=== PATIENT | female | born 1980 | race African-American/Black ===

== ENCOUNTER 2017-05-18 19:09 | Emergency (ER) | payer SELFPAY ==
--- NOTE | 2017-05-18 19:15 | PDOC ---
Rapid Medical Evaluation Time Seen by Provider: 05/18/17 19:12 Medical Evaluation: Allergies Allergy/AdvReac Type Severity Reaction Status Date / Time morphine Allergy Verified 06/30/16 16:10 05/18/17 19:12 I have performed a brief-in person evaluation of this patient. The patient presents with a chief complaint of:hyperventilating/coughing Pt states shes been coughing x3d without fever/chills, runny nose, nasal congestion/sore throat Was seen at [facility] last Sunday05/09/2017 Never intubated for asthma last admission for asthma was July 2016 Pertinent physical exam findings:Pulse ox: 98 in triage L/S ctab I have ordered the following: CXR U preg The patient will proceed to the ED for a further evaluation.
[2017-05-18 19:16] VITALS: BP 158/68; TEMP 99.4; BMI 37.6
[2017-05-18] MEDS ORDERED: ALBUTEROL SO4 2.5/IPRATROPIUM 0.5 INH SOL 3 ML VIAL.NEB. NEB ONE ×3 (19:23→19:26)
[2017-05-18] MEDS ORDERED: predniSONE 20 MG TABLET (UD) PO ONE (19:27)
[2017-05-18] MEDS ORDERED: methylPREDNISolone NA SUCC 125 MG/2 ML VIAL ONE (19:33)
[2017-05-18] MEDS ORDERED: methylPREDNISolone NA SUCC 125 MG/2 ML VIAL IVPB ONE (19:33)
--- NOTE | 2017-05-18 19:41 | PDOC ---
History of Present Illness - General History Source: Patient Exam Limitations: No Limitations - History of Present Illness Initial Comments: 05/18/17 20:16 The patient is a 34 year old female, with a significant past medical history of asthma exacerbation (hospitalized in the past), who presents to the emergency department with, shortness of breath and cough. As per patient, she has been sick for multiple days worsening today. She reports significant shortness of breath when walking short distances. She describes her cough as productive with dark colored mucus. She denies taking steroids for her asthma today. She denies recent fevers, chills, headache or dizziness. She denies recent nausea, vomit, diarrhea or constipation. She denies recent dysuria, frequency, urgency or hematuria. She denies recent chest pain. Allergies: Morphine Past surgical history: None reported. Social history: Nonsmoker. Denies EtOH use and recreational drug use. <Richardson Lopez - Last Filed: 05/18/17 21:30> - General History Source: Patient Exam Limitations: No Limitations <Ric Colbert - Last Filed: 05/18/17 22:20> - General Chief Complaint: Asthma Stated Complaint: ASTHMA Time Seen by Provider: 05/18/17 19:12 Past History <Richardson Lopez - Last Filed: 05/18/17 21:30> - Past Medical History Asthma: Yes COPD: No GI Disorders: Yes - Surgical History Cholecystectomy: Yes GI Surgery: Yes (HIATAL HERNIA REPAIR, ERCP) - Reproductive History (#): 3 Para: 1 Therapeutic (s) & number: Yes (X1) Spontaneous : 0 - Immunization History Td Vaccination: No - Suicide/Smoking/Psychosocial Hx Smoking Status: No Smoking History: Never smoked Have you smoked in the past 12 months: No Number of Cigarettes Smoked Daily: 0 Information on smoking cessation initiated: No Hx Alcohol Use: No Drug/Substance Use Hx: No Substance Use Type: None <Ric Colbert - Last Filed: 05/18/17 22:20> - Past Medical History Allergies/Adverse Reactions: Allergies Allergy/AdvReac Type Severity Reaction Status Date / Time morphine Allergy Verified 06/30/16 16:10 Home Medications: Ambulatory Orders Erythromycin 0.5% Eye Ointment [Erythromycin 0.5% Eye Ointment -] 1 applic OD QID #1 tube 06/30/16 Albuterol Sulfate Inhaler - [Ventolin HFA Inhaler -] 1 - 2 inh PO Q4H PRN #1 inhaler 05/18/17 Azithromycin 250 mg PO DAILY #4 tablet 05/18/17 Prednisone [Deltasone] 60 mg PO DAILY #12 tablet 05/18/17 Review of Systems - Review of Systems Able to Perform ROS?: Yes Comments:: 05/18/17 20:17 GENERAL/CONSTITUTIONAL: No fever or chills. No weakness. HEAD, EYES, EARS, NOSE AND THROAT: No change in vision. No ear pain or discharge. No sore throat. CARDIOVASCULAR: No chest pain. RESPIRATORY: +Shortness of breath. +Cough. No hemoptysis. GASTROINTESTINAL: No nausea, vomiting, diarrhea or constipation. GENITOURINARY: No dysuria, frequency, or change in urination. MUSCULOSKELETAL: No joint or muscle swelling or pain. No neck or back pain. SKIN: No rash NEUROLOGIC: No headache, vertigo, loss of consciousness, or change in strength/ sensation. ENDOCRINE: No increased thirst. No abnormal weight change. HEMATOLOGIC/LYMPHATIC: No anemia, easy bleeding, or history of blood clots. ALLERGIC/IMMUNOLOGIC: No hives or skin allergy. All Other Systems: Reviewed and Negative <Richardson Lopez - Last Filed: 05/18/17 21:30> *Physical Exam - Vital Signs Last Vital Signs Temp Pulse Resp BP Pulse Ox 99.4 F 100 H 32 H 158/68 98 05/18/17 19:13 05/18/17 19:34 05/18/17 19:13 05/18/17 19:13 05/18/17 19:34 - Physical Exam Comments: 05/18/17 20:17 GENERAL: +Speaking a few words. Awake, alert, and fully oriented, in no acute distress HEAD: No signs of trauma EYES: PERRLA, EOMI, sclera anicteric, conjunctiva clear ENT: Auricles normal inspection, hearing grossly normal, nares patent, oropharynx clear without exudates. Moist mucosa NECK: Normal ROM, supple, no lymphadenopathy, JVD, or masses LUNGS: +Diffuse wheezing. No crackles HEART: +Tachycardic. Regular rate and rhythm, normal S1 and S2, no murmurs, rubs or gallops ABDOMEN: Soft, nontender, normoactive bowel sounds. No guarding, no rebound. No masses EXTREMITIES: Normal range of motion, no edema. No clubbing or cyanosis. No cords, erythema, or tenderness NEUROLOGICAL: Cranial nerves II through XII grossly intact. Normal speech, normal gait SKIN: Warm, Dry, normal turgor, no rashes or lesions noted. <Richardson Lopez - Last Filed: 05/18/17 21:30> - Vital Signs Last Vital Signs Temp Pulse Resp BP Pulse Ox 99.4 F 125 H 32 H 158/68 96 05/18/17 19:13 05/18/17 19:13 05/18/17 19:13 05/18/17 19:13 05/18/17 19:13 <Ric Colbert - Last Filed: 05/18/17 22:20> ED Treatment Course - LABORATORY CBC & Chemistry Diagram: 05/18/17 19:34 05/18/17 19:34 - ADDITIONAL ORDERS Additional order review: 05/18/17 19:22 Influenza Types A,B Antigen (ANDRA) - Final Nasopharyngeal Swab - Final 05/18/17 19:34 RBC 5.31 H MCV 63.8 L MCHC 30.5 L RDW 19.2 H MPV 9.0 Neutrophils % 43.9 Lymphocytes % 32.0 Monocytes % 10.9 H Eosinophils % 12.8 H Basophils % 0.4 - Medications Given in the ED: ED Medications Discontinued Medications Generic Name Dose Route Start Last Admin Trade Name Freq PRN Reason Stop Dose Admin Albuterol/Ipratropium 1 amp 05/18/17 19:23 05/18/17 19:48 Duoneb - NEB 05/18/17 19:24 1 amp ONCE ONE Administration Albuterol/Ipratropium 2 amp 05/18/17 19:26 05/18/17 19:48 Duoneb - NEB 05/18/17 19:27 2 amp ONCE ONE Administration Methylprednisolone Sodium Succinate 125 mg 05/18/17 19:33 05/18/17 19:48 Solu-Medrol - IVPB 05/18/17 19:34 125 mg ONCE ONE Administration Prednisone 60 mg 05/18/17 19:27 05/18/17 19:48 Deltasone - PO 05/18/17 19:28 Not Given ONCE ONE <Richardson Lopez - Last Filed: 05/18/17 21:30> - LABORATORY CBC & Chemistry Diagram: 05/18/17 19:34 05/18/17 19:34 - RADIOLOGY Radiology Studies Ordered: Category Date Time Status CHEST X-RAY PORTABLE* [RAD] Urgent Radiology 05/18/17 19:34 Ordered <Ric Colbert - Last Filed: 05/18/17 22:20> Medical Decision Making - Medical Decision Making 05/18/17 19:36 A portion of this note was written by my scribe, under my supervision. Vital Signs Temp Pulse Resp BP Pulse Ox 99.4 F 125 H 32 H 158/68 96 05/18/17 19:13 05/18/17 19:13 05/18/17 19:13 05/18/17 19:13 05/18/17 19:13 37 year old female c/ pmh obesity, asthma (never intubated) p/w asthma exacerbation. The patient reports several days of difficulty breathing, wheezing , productive cough, but no fevers, chills. States has had difficulty speaking and ambulating. Pt noted to be quite tachypneic and SOB. Pt with tight breath sounds and expiratory wheezing bilaterally. Pt was seen immediately by the PA and me. Pt was started on duonebs and started on solu-medrol. Chest xray and reassess. 05/18/17 22:13 CBC, BMP 05/18/17 19:34 05/18/17 19:34 CMP Sodium 139 mmol/L (136-145) 05/18/17 19:34 Potassium 4.4 mmol/L (3.5-5.1) 05/18/17 19:34 Chloride 108 mmol/L (98-107) H 05/18/17 19:34 Carbon Dioxide 26 mmol/L (21-32) 05/18/17 19:34 Anion Gap 5 (8-16) L 05/18/17 19:34 BUN 7 mg/dL (7-18) 05/18/17 19:34 Creatinine 0.7 mg/dL (0.55-1.02) 05/18/17 19:34 Creat Clearance w eGFR > 60 (>60) 05/18/17 19:34 Random Glucose 94 mg/dL (74-106) 05/18/17 19:34 Calcium 8.4 mg/dL (8.5-10.1) L 05/18/17 19:34 Magnesium 2.0 mg/dL (1.8-2.4) 05/18/17 19:34 Total Bilirubin 0.3 mg/dL (0.2-1.0) 05/18/17 19:34 AST 26 U/L (15-37) 05/18/17 19:34 ALT 34 U/L (12-78) 05/18/17 19:34 Alkaline Phosphatase 92 U/L (45-117) 05/18/17 19:34 Total Protein 7.3 g/dl (6.4-8.2) 05/18/17 19:34 Albumin 3.6 g/dl (3.4-5.0) 05/18/17 19:34 Serum , Qual Negative 05/18/17 19:34 Chest xray reviewed, pending official radiology read. No acute findings. Pt was reassessed and she feels significantly better. Will treat as asthma, bronchitis. Will discharge with albuterol, prednisone, and azithromycin. I discussed the physical exam findings, ancillary test results and final diagnoses with the patient. I answered all of the patient's questions. The patient was satisfied with the care received and felt comfortable with the discharge plan and treatment plan. The patient will call their primary care physician within 24 hours to arrange follow-up and will return to the Emergency Department with any new, persistant or worsening symptoms. <Ric Colbert - Last Filed: 05/18/17 22:20> *DC/Admit/Observation/Transfer - Attestations Scribe Attestion: 05/18/17 20:17 Documentation prepared by Richardson Lopez, acting as medical records technician for Ric Colbert MD. <Richardson Lopez - Last Filed: 05/18/17 21:30> - Discharge Dispostion Admit: No <Ric Colbert - Last Filed: 05/18/17 22:20> Diagnosis at time of Disposition: Bronchitis Asthma Qualifiers: Asthma severity: unspecified severity Asthma persistence: unspecified Asthma complication type: unspecified Qualified Code(s): J45.909 - Unspecified asthma, uncomplicated - Discharge Dispostion Disposition: HOME Condition at time of disposition: Improved - Prescriptions Prescriptions: Albuterol Sulfate Inhaler - [Ventolin HFA Inhaler -] 1 - 2 inh PO Q4H PRN #1 inhaler PRN Reason: Asthma Azithromycin 250 mg PO DAILY #4 tablet Prednisone [Deltasone] 60 mg PO DAILY #12 tablet - Patient Instructions Printed Discharge Instructions: Asthma -- Adult, DI for Acute Bronchitis Additional Instructions: Please take the medications as prescribed. Drink plenty of fluids and rest. Follow up with your doctor.
[2017-05-18 19:52] LABS: ADD RBC MORPHOLOGY YES; BASO % 0.4 % (0-2.0); EOS % 12.8 % (0-4.5); HEMATOCRIT 33.9 % (32.4-45.2); HEMOGLOBIN 10.3 GM/dL (10.7-15.3); MCH 19.4 pg (25.7-33.7); MCHC 30.5 g/dl (32.0-36.0); MEAN CELL VOLUME 63.8 fl (80-96); MONO % 10.9 % (3.8-10.2); NEUT % 43.9 % (42.8-82.8); PLATELET COUNT 306 K/MM3 (134-434); RBC 5.31 M/mm3 (3.60-5.2); RDW 19.2 % (11.6-15.6); WHITE BLOOD COUNT 12.5 K/mm3 (4.0-10.0)
[2017-05-18 19:55] VITALS: PULSE 100
[2017-05-18 20:26] LABS: ALBUMIN 3.6 g/dl (3.4-5.0); ALK PHOS 92 U/L (45-117); ANION GAP 5 (8-16); BILIRUBIN,TOTAL 0.3 mg/dL (0.2-1.0); BLOOD UREA NITROGEN 7 mg/dL (7-18); CALCIUM 8.4 mg/dL (8.5-10.1); CHLORIDE 108 mmol/L (98-107); CO2 26 mmol/L (21-32); CREATININE 0.7 mg/dL (0.55-1.02); GLUCOSE,RANDOM 94 mg/dL (74-106); POTASSIUM 4.4 mmol/L (3.5-5.1); SGOT/AST 26 U/L (15-37); SGPT/ALT 34 U/L (12-78); SODIUM 139 mmol/L (136-145); TOT PROT 7.3 g/dl (6.4-8.2)
[2017-05-18 20:47] LABS: ANISOCYTOSIS 2+
[2017-05-18 20:48] LABS: PLATELET ESTIMATE ADEQUATE; TARGET CELLS 1+
[2017-05-18] MEDS ORDERED: AZITHROMYCIN 500 MG TABLET PO ONE (21:58)
[2017-05-18] MEDS ORDERED: ALBUTEROL SO4 0.083% IH SOL 2.5 MG/3 ML VIAL.NEB. NEB ONE ×2 (21:59→22:03)
[2017-05-18] MEDS ORDERED: AZITHROMYCIN 500 MG TABLET ONE (22:03)
== END 2017-05-18 22:52 | disposition home or self-care (01) ==
LOC: JER 19:09
PROC: 3E0F7GC Introduction of Other Therapeutic Substance into Respiratory Tract, Via Natural or Artificial Opening (ICD-10-PCS; principal; 2017-05-18)
PROC: 3E0F7GC Introduction of Other Therapeutic Substance into Respiratory Tract, Via Natural or Artificial Opening (ICD-10-PCS; 2017-05-18)
PROC: 3E0F7GC Introduction of Other Therapeutic Substance into Respiratory Tract, Via Natural or Artificial Opening (ICD-10-PCS; 2017-05-18)
PROC: 3E0333Z Introduction of Anti-inflammatory into Peripheral Vein, Percutaneous Approach (ICD-10-PCS; 2017-05-18)
DX: J45.901 Unspecified asthma with (acute) exacerbation (principal)
CPT/HCPCS: 36415; 71045-TC; 80053; 83735; 84703; 85025; 87804; 99283-25

== ENCOUNTER 2017-09-21 16:17 | Emergency (ER) | payer SELFPAY ==
--- NOTE | 2017-09-21 16:21 | PDOC ---
Rapid Medical Evaluation Chief Complaint: Pain, Acute Time Seen by Provider: 09/21/17 16:18 Medical Evaluation: Allergies Allergy/AdvReac Type Severity Reaction Status Date / Time morphine Allergy Verified 09/21/17 16:19 09/21/17 16:19 I have performed a brief in-person evaluation of this patient. The patient presents with a chief complaint of: Upper abd pain w/ n/v x 1 week, similar yo when she was dx w/ gastric ulcer in 2013, not on meds. H/o surgery for hiatal hernia, s/p kevin, asthma Pertinent physical exam findings:appears uncomfortable, sig ttp to epigastrium I have ordered the following:labs The patient will proceed to the ED for further evaluation. 09/21/17 16:22 Discharge Disposition - Diagnosis Abdominal pain Qualifiers: Abdominal location: upper abdomen, unspecified Qualified Code(s): R10.10 - Upper abdominal pain, unspecified - Referrals - Patient Instructions - Post Discharge Activity
[2017-09-21 16:22] VITALS: TEMP 98.1; BMI 34.2
--- NOTE | 2017-09-21 16:43 | PDOC ---
History of Present Illness - General Chief Complaint: Pain, Acute Stated Complaint: ABD PAIN Time Seen by Provider: 09/21/17 16:18 - History of Present Illness Initial Comments: 09/21/17 16:41 Ms. Laura is a 37 yo female w/ pmh of asthma, gastric ulcer, hiatal hernia (s/ p repair '06), and cholecystecomy who presents for evaluation of 9 day history of nausea and vomiting with epigastric pain. She reports the vomiting has consisted of whatever she's eaten over this time period. Denies any blood or bile. Patient reports she was told 5 years ago about the gastric ulcer but that she has never followed up regarding this for further treatment. Ms. Laura also reports she sometimes wears a corset and has some bruising from this in the same area. The patient denies chest pain, shortness of breath, headache and dizziness. Denies fever, chills, diarrhea and constipation. Denies dysuria, frequency, urgency and hematuria. Allergies: Morphine Past History - Past Medical History Allergies/Adverse Reactions: Allergies Allergy/AdvReac Type Severity Reaction Status Date / Time morphine Allergy Verified 09/21/17 16:19 Home Medications: Ambulatory Orders Esomeprazole Magnesium [Nexium 24Hr] 20 mg PO DAILY #14 tablet. 09/21/17 Asthma: Yes COPD: No GI Disorders: Yes - Surgical History Cholecystectomy: Yes GI Surgery: Yes (HIATAL HERNIA REPAIR, ERCP) - Reproductive History (#): 3 Para: 1 Therapeutic (s) & number: Yes (X1) Spontaneous : 0 - Immunization History Td Vaccination: No - Suicide/Smoking/Psychosocial Hx Smoking Status: No Smoking History: Never smoked Have you smoked in the past 12 months: No Number of Cigarettes Smoked Daily: 0 Hx Alcohol Use: No Drug/Substance Use Hx: No Substance Use Type: None Review of Systems - Review of Systems Comments:: 09/21/17 16:42 GENERAL/CONSTITUTIONAL: No fever or chills. No weakness. HEAD, EYES, EARS, NOSE AND THROAT: No change in vision. No ear pain or discharge. No sore throat. CARDIOVASCULAR: No chest pain or shortness of breath RESPIRATORY: No cough, wheezing, or hemoptysis. GASTROINTESTINAL: +Epigastric pain w/ N/V as described, no diarrhea or constipation. GENITOURINARY: No dysuria, frequency, or change in urination. MUSCULOSKELETAL: No joint or muscle swelling or pain. No neck or back pain. SKIN: No rash NEUROLOGIC: No headache, vertigo, loss of consciousness, or change in strength/ sensation. ENDOCRINE: No increased thirst. No abnormal weight change HEMATOLOGIC/LYMPHATIC: No anemia, easy bleeding, or history of blood clots. ALLERGIC/IMMUNOLOGIC: No hives or skin allergy. *Physical Exam - Vital Signs Last Vital Signs Temp Pulse Resp BP Pulse Ox 98.1 F 88 18 143/85 100 09/21/17 16:19 09/21/17 16:19 09/21/17 16:19 09/21/17 16:19 09/21/17 16:19 - Physical Exam Comments: 09/21/17 16:43 GENERAL: Awake, alert, and fully oriented, in no acute distress HEAD: No signs of trauma, normocephalic, atraumatic EYES: PERRLA, EOMI, sclera anicteric, conjunctiva clear ENT: Auricles normal inspection, hearing grossly normal, nares patent, oropharynx clear without exudates. Moist mucosa NECK: Normal ROM, supple, no lymphadenopathy, JVD, or masses LUNGS: No distress, speaks full sentences, clear to auscultation bilaterally HEART: Regular rate and rhythm, normal S1 and S2, no murmurs, rubs or gallops, peripheral pulses normal and equal bilaterally. ABDOMEN: +Linear bruise along upper abdomen patient reports is from her corset. Patient significantly TTP in epigastric region. Otherwise soft, nontender, normoactive bowel sounds. No guarding, no rebound. No masses EXTREMITIES: Normal inspection, Normal range of motion, no edema. No clubbing or cyanosis. NEUROLOGICAL: Cranial nerves II through XII grossly intact. Normal speech, normal gait, no focal sensorimotor deficits SKIN: Warm, Dry, normal turgor, no rashes or lesions noted. ED Treatment Course - LABORATORY CBC & Chemistry Diagram: 09/21/17 16:35 09/21/17 16:35 Medical Decision Making - Medical Decision Making 09/21/17 19:15 Ms. Laura is a 37 yo female w/ pmh as described who presents for evaluation of epigastric pain as described. Labs grossly unconcerning as below. CT abdomen/ pelvis negative for acute process. Patient advised to follow-up with GI for further evaluation and will trial nexium for symptomatic relief. Providing GI referral and trial Rx. Discharging to home. Laboratory Results - last 24 hr 09/21/17 09/21/17 09/21/17 16:35 16:35 16:35 WBC 7.5 D RBC 4.90 Hgb 9.9 L Hct 32.4 MCV 66.1 L MCH 20.2 L MCHC 30.5 L RDW 17.5 H Plt Count 331 MPV 8.9 Absolute Neuts (auto) 4.1 Neutrophils % 54.8 D Lymphocytes % 27.2 Monocytes % 12.3 H Eosinophils % 5.4 H Basophils % 0.3 Nucleated RBC % 0 Hypochromia 2+ Anisocytosis 1+ Microcytosis 1+ Sodium 140 Potassium 4.1 Chloride 107 Carbon Dioxide 26 Anion Gap 7 L BUN 6 L Creatinine 0.8 Creat Clearance w eGFR > 60 Random Glucose 93 Calcium 9.1 Total Bilirubin 0.3 AST 22 ALT 34 Alkaline Phosphatase 77 Creatine Kinase Troponin I Total Protein 7.3 Albumin 3.8 Lipase 107 111 Serum , Qual Urine Color Urine Appearance Urine pH Ur Specific [place] Urine Protein Urine Glucose (UA) Urine Ketones Urine Blood Urine Nitrite Urine Bilirubin Urine Urobilinogen Ur Leukocyte Esterase Urine WBC (Auto) Urine RBC (Auto) Ur Epithelial Cells Urine Bacteria Urine Mucus 09/21/17 09/21/17 09/21/17 16:56 17:47 18:50 WBC RBC Hgb Hct MCV MCH MCHC RDW Plt Count MPV Absolute Neuts (auto) Neutrophils % Lymphocytes % Monocytes % Eosinophils % Basophils % Nucleated RBC % Hypochromia Anisocytosis Microcytosis Sodium Potassium Chloride Carbon Dioxide Anion Gap BUN Creatinine Creat Clearance w eGFR Random Glucose Calcium Total Bilirubin AST ALT Alkaline Phosphatase Creatine Kinase 120 Troponin I < 0.02 Total Protein Albumin Lipase Serum , Qual Negative Urine Color Straw Urine Appearance Clear Urine pH 6.0 Ur Specific [place] 1.035 Urine Protein Negative Urine Glucose (UA) Negative Urine Ketones Negative Urine Blood 3+ H Urine Nitrite Negative Urine Bilirubin Negative Urine Urobilinogen Negative Ur Leukocyte Esterase Trace Urine WBC (Auto) 1 Urine RBC (Auto) 79 Ur Epithelial Cells Rare Urine Bacteria Rare Urine Mucus Rare *DC/Admit/Observation/Transfer Diagnosis at time of Disposition: Abdominal pain Qualifiers: Abdominal location: upper abdomen, unspecified Qualified Code(s): R10.10 - Upper abdominal pain, unspecified - Discharge Dispostion Disposition: HOME - Referrals Referrals: Emanuel Das DO [Staff Physician] - - Patient Instructions Printed Discharge Instructions: DI for Gastroesophageal Reflux Disease (GERD) Additional Instructions: Please follow-up with gastroenterology as discussed. A prescription has been sent to your pharmacy; take all medications as proscribed. Return to ER if any increase in pain, fever, chills, or other concerning symptoms. - Post Discharge Activity
[2017-09-21 16:46] LABS: BASO % 0.3 % (0-2.0); EOS % 5.4 % (0-4.5); HEMATOCRIT 32.4 % (32.4-45.2); HEMOGLOBIN 9.9 GM/dL (10.7-15.3); LYMPH % 27.2 % (8-40); MCH 20.2 pg (25.7-33.7); MCHC 30.5 g/dl (32.0-36.0); MEAN CELL VOLUME 66.1 fl (80-96); MEAN PLT VOLUME 8.9 fl (7.5-11.1); MONO % 12.3 % (3.8-10.2); NEUT % 54.8 % (42.8-82.8); PLATELET COUNT 331 K/MM3 (134-434); RDW 17.5 % (11.6-15.6); WHITE BLOOD COUNT 7.5 K/mm3 (4.0-10.0)
[2017-09-21] MEDS ORDERED: SODIUM CHLORIDE 1,000 ML IV STA (16:53)
[2017-09-21] MEDS ORDERED: MAG HYDROX/AL HYDROX/SIMETH 30 ML UNIT-DOSE CUP PO ONE (16:54)
[2017-09-21] MEDS ORDERED: LIDOCAINE VISCOUS 2% ORAL/TOP 20 ML UNIT-DOSE CUP MM ONE (16:54)
[2017-09-21] MEDS ORDERED: FAMOTIDINE 20 MG/50 ML IVPB 20 MG/50 ML MG IVPB ONE ×2 (16:54→17:03)
[2017-09-21] MEDS ORDERED: ONDANSETRON 4 MG/2 ML VIAL IVPUSH ONE (16:58)
[2017-09-21] MEDS ORDERED: ONDANSETRON 4 MG/2 ML VIAL ONE (17:03)
[2017-09-21] MEDS ORDERED: MAG HYDROX/AL HYDROX/SIMETH 30 ML UNIT-DOSE CUP ONE (17:03)
[2017-09-21] MEDS ORDERED: LIDOCAINE VISCOUS 2% ORAL/TOP 20 ML UNIT-DOSE CUP ONE (17:03)
[2017-09-21 17:21] LABS: ALBUMIN 3.8 g/dl (3.4-5.0); ANION GAP 7 (8-16); BLOOD UREA NITROGEN 6 mg/dL (7-18); CALCIUM 9.1 mg/dL (8.5-10.1); CHLORIDE 107 mmol/L (98-107); CO2 26 mmol/L (21-32); GLUCOSE,RANDOM 93 mg/dL (74-106); LIPASE 107 U/L (73-393); POTASSIUM 4.1 mmol/L (3.5-5.1); SGOT/AST 22 U/L (15-37); SGPT/ALT 34 U/L (12-78); SODIUM 140 mmol/L (136-145)
[2017-09-21 17:23] LABS: ALK PHOS 77 U/L (45-117); BILIRUBIN,TOTAL 0.3 mg/dL (0.2-1.0); CREATININE 0.8 mg/dL (0.55-1.02); TOT PROT 7.3 g/dl (6.4-8.2)
[2017-09-21 17:35] LABS: ANISOCYTOSIS 1+
[2017-09-21] MEDS ORDERED: ACETAMINOPHEN 1000 MG/100 ML VIAL (NON FORMULARY) IVPB ONE (17:40)
--- NOTE | 2017-09-21 18:02 | PDOC ---
Attending Attestation - Resident Resident Name: Jose A Navarro - ED Attending Attestation I have performed the following: I have examined & evaluated the patient, The case was reviewed & discussed with the resident, I agree w/resident's findings & plan, Exceptions are as noted - HPI HPI: 09/21/17 17:57 "The patient is a 37 year old female with past medical history of asthma, hiatal hernia s/p surgery, cholecystectomy, presents to the emergency department with nausea and vomiting. The patient reports multiple episodes of nausea and nonbloody nonbilious vomiting for the past 9 days, reports the symptoms are accompanied with epigastric pain. The patient reports she is unable to tolerate food or liquid due sudden exacerbation of her pain and nausea. The patient reports a similar incident 5 years ago, states she was dx with gastric ulcer,. She has not received tx for this. Pt denies chest pain or sob. Denies fever, chills, cough or headache. Denies diarrhea or constipation. Denies hematemesis or hematochezia. Denies dysuria, hematuria, frequency or urgency to urinate. Allergies: Morphine Past surgical history: Hiatal Hernia repair (2005), ERCP and Cholecystectomy. Social history: Nonsmoker. Denies EtOH use and recreational drug use. PCP: None reported. " - Physicial Exam PE: 09/21/17 18:02 "GENERAL: Awake, alert, and fully oriented, in no acute distress. HEAD: No signs of trauma EYES: PERRLA, EOMI, sclera anicteric, conjunctiva clear ENT: Auricles normal inspection, hearing grossly normal, nares patent, oropharynx clear without exudates. Moist mucosa NECK: Nontender, no stepoffs, Normal ROM, supple, no lymphadenopathy, JVD, or masses LUNGS: Breath sounds equal, clear to auscultation bilaterally. No wheezes, and no crackles HEART: Regular rate and rhythm, normal S1 and S2, no murmurs, rubs or gallops ABDOMEN: + TTP epigastrum, + ecchymosis across anterior abdomen, no lower abdominal tenderness EXTREMITIES: Normal range of motion, no edema. No clubbing or cyanosis. No cords, erythema, or tenderness NEUROLOGICAL: Cranial nerves II through XII intact. 5/5 strength and sensation in all extremities, Normal speech, normal gait, normal cerebellar function SKIN: Warm, Dry, normal turgor, no rashes or lesions noted. " - Medical Decision Making 09/21/17 18:03 37 F with epigastric pain + N/V. Exam notable for ecchymosis across anterior abdomen and tenderness at epigastrum. Likely gastritis vs PUD. Will r/o perforation. - Labs, lipase - CTAP - GI cocktail 09/21/17 19:[address] unremarkable. Pt reassessed - now with improved pain Will DC with GI f/u. Pt is well appearing, with normal vitals. Clinically stable for DC at this time. I discussed the physical exam findings, ancillary test results and final diagnoses with the patient. I answered all of the patient's questions. The patient was satisfied with the care received and felt comfortable with the discharge plan and treatment plan. The patient agrees to follow up with the primary care physician within 24-72 hours.
[2017-09-21] MEDS ORDERED: LORATADINE 10 MG TABLET ONE (18:50)
[2017-09-21] MEDS ORDERED: LORATADINE 10 MG TABLET PO ONE (18:51)
[2017-09-21 19:15] LABS: URINE APPEARANCE CLEAR; URINE BILIRUBIN NEGATIVE (<2.0 mg/dL); URINE BLOOD 3+ (NEGATIVE); URINE COLOR STRAW; URINE GLUCOSE (UA) NEGATIVE (NEGATIVE); URINE KETONE NEGATIVE (NEGATIVE); URINE LEUK ESTERASE TRACE (NEGATIVE); URINE NITRITE NEGATIVE (NEGATIVE); URINE PROTEIN NEGATIVE (NEGATIVE); URINE UROBILINOGEN NEGATIVE mg/dL (0.2-1.0)
[2017-09-21 19:21] LABS: EPI CELLS RARE /HPF (FEW); URINE BACTERIA RARE /hpf (NONE SEEN); URINE MUCUS RARE
[2017-09-21 19:33] VITALS: BP 112/67; PULSE 74
--- NOTE | 2017-09-22 14:38 | EKG ---
Test Reason : Blood Pressure : / mmHG Vent. Rate : 083 BPM Atrial Rate : 083 BPM P-R Int : 160 ms QRS Dur : 086 ms QT Int : 376 ms P-R-T Axes : 046 048 040 degrees QTc Int : 441 ms NORMAL SINUS RHYTHM NORMAL ECG NO PREVIOUS ECGS AVAILABLE Confirmed by MD Durbin Daniel ([id number]) on 09/22/2017 2:38:08 PM Referred By: Confirmed By:Stephen Durbin MD
== END 2017-09-21 19:52 | disposition home or self-care (01) ==
LOC: JER 16:17
PROC: 3E033NZ Introduction of Analgesics, Hypnotics, Sedatives into Peripheral Vein, Percutaneous Approach (ICD-10-PCS; principal; 2017-09-21)
PROC: 3E033GC Introduction of Other Therapeutic Substance into Peripheral Vein, Percutaneous Approach (ICD-10-PCS; 2017-09-21)
PROC: 3E0337Z Introduction of Electrolytic and Water Balance Substance into Peripheral Vein, Percutaneous Approach (ICD-10-PCS; 2017-09-21)
DX: R10.10 Upper abdominal pain, unspecified (principal); J45.909 Unspecified asthma, uncomplicated; K21.9 Gastro-esophageal reflux disease without esophagitis
CPT/HCPCS: 36415; 74177-TC; 80053; 81003; 81015; 82550; 83690; 84484; 84703; 85025; 93005; 93010; 99284-25; J0131; J7030

== ENCOUNTER 2017-10-25 14:01 | Emergency (ER) | payer SELFPAY ==
[2017-10-25 14:12] VITALS: BP 135/71; PULSE 107; TEMP 99.2; BMI 34.8
[2017-10-25] MEDS ORDERED: ALBUTEROL SO4 2.5/IPRATROPIUM 0.5 INH SOL 3 ML VIAL.NEB. NEB ONE ×3 (14:15→19:49)
--- NOTE | 2017-10-25 14:16 | PDOC ---
History of Present Illness - General Chief Complaint: Asthma Stated Complaint: ASTHMA Time Seen by Provider: 10/25/17 14:15 - History of Present Illness Initial Comments: 10/25/17 14:22 Patient is a 37 year old female with a PMH of Asthma (multiple hospitalizations , no intubations), Hiatal hernia (s/p surgery), cholecystectomy and gastric ulcer presents to the ED this afternoon c/o shortness of breath. State she has a Ventolin inhaler which she used multiple times today with no relief. Patient notes she has had 3 ED evaluations in the past 2 weeks for asthma-at which time she was given Duo-Nebs and started on prednisone which she just completed. Patient notes during one of her prior hospitalizations she was diagnosed with PNA and was in isolation. Denies any TB risk factors including imprisonment, recent travel, close contact with TB persons. Patient follows at the [facility] and states her medications were adjusted in early 2017. Patient denies chest pain, abdominal pain, nausea/vomiting, diarrhea/ constipation Patient denies fevers/chills, dysuria/hematuria Patient denies recent travel or sick contacts. Allergies: Morphine Past surgical history: Hiatal Hernia repair (2005), ERCP and Cholecystectomy. Social history: Nonsmoker. Denies EtOH use and recreational drug use. PCP: Rashid Ayala- cannot recall name As per EMR, patient was last evaluated at our ER in 08/31 for abdominal pain and in 05/2017 for asthma exacerbation. Past History - Past Medical History Allergies/Adverse Reactions: Allergies Allergy/AdvReac Type Severity Reaction Status Date / Time morphine Allergy Verified 10/27/17 19:34 Home Medications: Ambulatory Orders Albuterol Sulfate Inhaler - [Ventolin Hfa Inhaler -] 2 inh PO Q4H PRN 10/27/17 Azithromycin [Zithromax 250mg Tablets -] 250 mg PO UTDICT #6 tab 10/28/17 Prednisone [Prednisone 50 MG TABLETS] 50 mg PO DAILY #4 tablet 10/28/17 Asthma: Yes COPD: No GI Disorders: Yes (ulcer) - Surgical History Cholecystectomy: Yes GI Surgery: Yes (HIATAL HERNIA REPAIR, ERCP) - Reproductive History (#): 3 Para: 1 Therapeutic (s) & number: Yes (X1) Spontaneous : 0 - Immunization History Td Vaccination: No - Suicide/Smoking/Psychosocial Hx Smoking Status: No Smoking History: Never smoked Have you smoked in the past 12 months: No Number of Cigarettes Smoked Daily: 0 Information on smoking cessation initiated: No Hx Alcohol Use: No Drug/Substance Use Hx: No Substance Use Type: None *Physical Exam - Vital Signs Last Vital Signs Temp Pulse Resp BP Pulse Ox 99.2 F 107 H 18 135/71 100 10/25/17 14:09 10/25/17 14:09 10/25/17 14:09 10/25/17 14:09 10/25/17 14:09 ED Treatment Course - LABORATORY CBC & Chemistry Diagram: 10/25/17 15:40 10/25/17 15:40 Medical Decision Making - Medical Decision Making 10/25/17 15:34 37 year old female presents w/2 week h/o worsening dyspnea likely 2/2 to asthma exacerbation. - Duo-Nebs x3 - Solumedrol - Mg - Chest CTA - as patient has h/o of PNA with unknown source. Patient signed out to Dr. Navarro (Resident) under Dr. Evangelista (Attending) *DC/Admit/Observation/Transfer Diagnosis at time of Disposition: Asthma Asthma exacerbation Qualifiers: Asthma severity: moderate Asthma persistence: persistent Qualified Code(s): J45.41 - Moderate persistent asthma with (acute) exacerbation - Discharge Dispostion Disposition: HOME - Referrals Referrals: Kenny Zaragoza MD, MD [Staff Physician] - - Patient Instructions Printed Discharge Instructions: Asthma -- Adult Additional Instructions: Please follow-up with pulmonology as discussed tomorrow for further evaluation. Return to ER if any return of shortness of breath, fever, chills, or other concerning symptoms. - Post Discharge Activity
--- NOTE | 2017-10-25 14:18 | PDOC ---
Attending Attestation - HPI HPI: 10/25/17 15:55 The patient is a 37 year old female with a significant past medical history of asthma and gastric ulcers who presents to the emergency department for evaluation of asthma exacerbation. Pt reports this is her 4th recent visit to ED within 2 weeks for asthma exacerbation. The patient reports using nebulizer treatment and Ventolin inhaler with mild alleviation to symptoms. She states she just finished her course of prednisone. Pt reports humidity, pollen, and stress are factors that exacerbate her asthma. She reports associated symptoms of productive cough with clear sputum. She states her shortness of breath is constant and she feels that she is gasping. Pt notes recent 1 week hospitalization in July or August for asthma exacerbation secondary to pneumonia, during which she was moved into isolation. The patient denies recent travel, sick contact, headache, dizziness, fever, chills, nausea, vomiting, and any bowel/urinary symptoms. Allergies: Morphine Social History: No reported alcohol, cigarette, or drug use. Surgical History: Hiatal Hernia Repair, ERCP, Cholecystectomy PCP: [facility] staff (can not recall name) - Physicial Exam PE: GENERAL: Awake, alert, and fully oriented, in no acute distress HEAD: No signs of trauma EYES: PERRLA, EOMI, sclera anicteric, conjunctiva clear ENT: Auricles normal inspection, hearing grossly normal, nares patent, oropharynx clear without exudates. Moist mucosa NECK: Normal ROM, supple, no lymphadenopathy, JVD, or masses LUNGS: (+)Diminished breath sounds, no wheezing, after 3 duoneb treatments. HEART: (+)Tachycardic. Regular rhythm, no murmurs, rubs or gallops ABDOMEN: Soft, nontender, normoactive bowel sounds. No guarding, no rebound. No masses EXTREMITIES: Normal range of motion, no edema. No clubbing or cyanosis. No cords, erythema, or tenderness NEUROLOGICAL: Cranial nerves II through XII grossly intact. Normal speech, normal gait SKIN: Warm, Dry, normal turgor, no rashes or lesions noted. <Nicol Kamara - Last Filed: 10/25/17 15:55> - Resident Resident Name: Darlene Hazel - ED Attending Attestation I have performed the following: I have examined & evaluated the patient, The case was reviewed & discussed with the resident, I agree w/resident's findings & plan, Exceptions are as noted - Medical Decision Making 37 yo F presenting with persistent shortness of breath Pt has a history of chronic persistent asthma No fevers or chills Multiple ER visits for asthma exacerbation No intubations Most recent hospitalization in August 2017 Pt examined s/p 3 DuoNebs Tachycardiac Lungs clear, diminished breath sounds No abd tenderness No lower extremity edema 10/26/17 21:34 Laboratory Tests 10/25/17 10/25/17 15:40 15:40 WBC 8.6 Hgb 9.0 L Hct 29.6 L Plt Count 326 Neutrophils % 41.6 L D Lymphocytes % 34.8 D BUN 6 L Creatinine 0.7 CTA pending Will sign out to overnight attending <Haley Evangelista - Last Filed: 10/26/17 21:36> Attestations - Attestations Documentation prepared by Niocl Kamara, acting as medical administrator for Haley Evangelista MD. <Nicol Kamara - Last Filed: 10/25/17 15:55>
[2017-10-25] MEDS ORDERED: methylPREDNISolone NA SUCC 125 MG/2 ML VIAL IVPUSH ONE (14:38)
[2017-10-25] MEDS ORDERED: MAGNESIUM SULF 50% (8.12 MEQ/2 ML-1 GM VIAL) IVPB ONE (14:38)
[2017-10-25] MEDS ORDERED: MAGNESIUM 1GM/D5W - 1 GM/100 ML IVPB IVPB ONE (15:04)
[2017-10-25] MEDS ORDERED: methylPREDNISolone NA SUCC 125 MG/2 ML VIAL ONE (15:04)
[2017-10-25 15:53] LABS: BASO % 0.4 % (0-2.0); EOS % 12.2 % (0-4.5); HEMATOCRIT 29.6 % (32.4-45.2); LYMPH % 34.8 % (8-40); MCHC 30.4 g/dl (32.0-36.0); MEAN CELL VOLUME 63.7 fl (80-96); MEAN PLT VOLUME 8.9 fl (7.5-11.1); NEUT % 41.6 % (42.8-82.8); PLATELET COUNT 326 K/MM3 (134-434); RBC 4.65 M/mm3 (3.60-5.2); RDW 17.4 % (11.6-15.6); WHITE BLOOD COUNT 8.6 K/mm3 (4.0-10.0)
[2017-10-25 15:58] LABS: ADD RBC MORPHOLOGY YES; MCH 19.4 pg (25.7-33.7)
[2017-10-25 16:12] LABS: ALBUMIN 3.2 g/dl (3.4-5.0); ANION GAP 9 (8-16); BILIRUBIN,TOTAL 0.2 mg/dL (0.2-1.0); BLOOD UREA NITROGEN 6 mg/dL (7-18); CALCIUM 8.6 mg/dL (8.5-10.1); CHLORIDE 110 mmol/L (98-107); CO2 25 mmol/L (21-32); CREATININE 0.7 mg/dL (0.55-1.02); GLUCOSE,RANDOM 89 mg/dL (74-106); POTASSIUM 4.2 mmol/L (3.5-5.1); SGOT/AST 19 U/L (15-37); SGPT/ALT 27 U/L (12-78); SODIUM 144 mmol/L (136-145); TOT PROT 6.6 g/dl (6.4-8.2)
[2017-10-25 16:13] LABS: ALK PHOS 75 U/L (45-117)
[2017-10-25 18:58] LABS: ANISOCYTOSIS 1+; MACROCYTOSIS 1+
[2017-10-25 18:59] LABS: OVALOCYTE 1+
[2017-10-25 19:00] LABS: PLATELET ESTIMATE ADEQUATE
--- NOTE | 2017-10-25 19:10 | PDOC ---
*Physical Exam - Vital Signs Last Vital Signs Temp Pulse Resp BP Pulse Ox 99.2 F 107 H 18 135/71 100 10/25/17 14:09 10/25/17 14:09 10/25/17 14:09 10/25/17 14:09 10/25/17 14:09 ED Treatment Course - LABORATORY CBC & Chemistry Diagram: 10/25/17 15:40 10/25/17 15:40 - ADDITIONAL ORDERS Additional order review: Laboratory Results 10/25/17 15:40 Sodium 144 Potassium 4.2 Chloride 110 H Carbon Dioxide 25 Anion Gap 9 BUN 6 L Creatinine 0.7 Creat Clearance w eGFR > 60 Random Glucose 89 Calcium 8.6 Total Bilirubin 0.2 AST 19 ALT 27 Alkaline Phosphatase 75 Total Protein 6.6 Albumin 3.2 L 10/25/17 15:40 RBC 4.65 MCV 63.7 L MCHC 30.4 L RDW 17.4 H MPV 8.9 Neutrophils % 41.6 L D Lymphocytes % 34.8 D Monocytes % 11.0 H Eosinophils % 12.2 H D Basophils % 0.4 - Medications Given in the ED: ED Medications Discontinued Medications Generic Name Dose Route Start Last Admin Trade Name Freq PRN Reason Stop Dose Admin Albuterol/Ipratropium 1 amp 10/25/17 14:15 10/25/17 14:24 Duoneb - NEB 10/25/17 14:16 1 amp ONCE ONE Administration Magnesium Sulfate 1 gm 10/25/17 14:38 10/25/17 15:17 Magnesium Sulfate IVPB 10/25/17 14:39 1 gm ONCE ONE Administration Methylprednisolone Sodium Succinate 125 mg 10/25/17 14:38 10/25/17 15:17 Solu-Medrol - IVPUSH 10/25/17 14:39 125 mg ONCE ONE Administration Medical Decision Making - Medical Decision Making 10/25/17 19:[address] Hazel. 10/25/17 20:30 Ms. Laura is a 37 yo female w/ pmh of Asthma (multiple hospitalizations but no intubations), Hiatal hernia s/p surgery, cholecystectomy, and gastric ulcers who presented to ED for evaluation of shortness of breath today. Patient has had 3 ED evaluation in 2 weeks for her asthma and is currently pending chest CTA. 10/25/17 22:15 Ms. Laura's CTA negative for acute process. Patient reportedly at baseline. Lungs C2AB. Patient reports no relief from steroids in the past and would not like any at this time. Will discharge w/ pulmonology follow-up for further evaluation. Counseled patient at length about importance of establishing pulmonology care. Patient verbalized understanding and agreement and will comply. Discharging to home. *DC/Admit/Observation/Transfer Diagnosis at time of Disposition: Asthma exacerbation Qualifiers: Asthma severity: moderate Asthma persistence: unspecified Qualified Code(s): J45.901 - Unspecified asthma with (acute) exacerbation - Discharge Dispostion Disposition: HOME - Referrals Referrals: Kenny Zaragoza MD, MD [Staff Physician] - - Patient Instructions Printed Discharge Instructions: Asthma -- Adult Additional Instructions: Please follow-up with pulmonology as discussed tomorrow for further evaluation. Return to ER if any return of shortness of breath, fever, chills, or other concerning symptoms. - Post Discharge Activity
== END 2017-10-25 22:26 | disposition home or self-care (01) ==
LOC: JER 14:01
PROC: 3E0F7GC Introduction of Other Therapeutic Substance into Respiratory Tract, Via Natural or Artificial Opening (ICD-10-PCS; principal; 2017-10-25)
PROC: 3E0F7GC Introduction of Other Therapeutic Substance into Respiratory Tract, Via Natural or Artificial Opening (ICD-10-PCS; 2017-10-25)
PROC: 3E033GC Introduction of Other Therapeutic Substance into Peripheral Vein, Percutaneous Approach (ICD-10-PCS; 2017-10-25)
PROC: 3E0333Z Introduction of Anti-inflammatory into Peripheral Vein, Percutaneous Approach (ICD-10-PCS; 2017-10-25)
DX: J45.41 Moderate persistent asthma with (acute) exacerbation (principal); Z87.19 Personal history of other diseases of the digestive system; Z90.49 Acquired absence of other specified parts of digestive tract
CPT/HCPCS: 36415; 71045-TC-FY; 71275-TC; 80053; 84703; 85025; 99281-25; J7620

== ENCOUNTER 2017-10-27 19:27 | Emergency (ER) | payer SELFPAY ==
[2017-10-27 19:38] VITALS: BMI 35.2
--- NOTE | 2017-10-27 19:41 | PDOC ---
History of Present Illness - General Chief Complaint: Asthma Stated Complaint: ASTHMA Time Seen by Provider: 10/27/17 19:41 History Source: Patient Exam Limitations: No Limitations - History of Present Illness Initial Comments: 10/27/17 19:55 37-year-old woman past medical history of asthma and GERD who presents emergency departments with shortness of breath for the past 3-4 days. Patient states she was seen and evaluated here on 10/25 for similar symptoms and at that time had blood work, and nebulizer treatments and imaging studies including CTA. Patient states she felt better at the time of discharge but became short of breath within a few hours of discharge. Patient reports wet minimally productive cough with yellow sputum. Patient states she visits emergency departments, urgent care centers and her primary doctor multiple times a year averaging one to 2 visits monthly. Patient states she was given a referral for dynamic balancer on her last visit but has not had an opportunity make an appointment at this time. Patient states she's never had any ICU admissions or intubations as a result of asthma in the past. Past History - Past Medical History Allergies/Adverse Reactions: Allergies Allergy/AdvReac Type Severity Reaction Status Date / Time morphine Allergy Verified 10/27/17 19:34 Home Medications: Ambulatory Orders Albuterol Sulfate Inhaler - [Ventolin Hfa Inhaler -] 2 inh PO Q4H PRN 10/27/17 Azithromycin [Zithromax 250mg Tablets -] 250 mg PO UTDICT #6 tab 10/28/17 Prednisone [Prednisone 50 MG TABLETS] 50 mg PO DAILY #4 tablet 10/28/17 Asthma: Yes COPD: No GI Disorders: Yes (ulcer) - Surgical History Cholecystectomy: Yes GI Surgery: Yes (HIATAL HERNIA REPAIR, ERCP) - Reproductive History (#): 3 Para: 1 Therapeutic (s) & number: Yes (X1) Spontaneous : 0 - Immunization History Td Vaccination: No - Suicide/Smoking/Psychosocial Hx Smoking Status: No Smoking History: Never smoked Have you smoked in the past 12 months: No Number of Cigarettes Smoked Daily: 0 Information on smoking cessation initiated: No Hx Alcohol Use: No Drug/Substance Use Hx: No Substance Use Type: None Review of Systems - Review of Systems Able to Perform ROS?: Yes Is the patient limited Hungarian proficient: No Constitutional: No: Symptoms Reported HEENTM: No: Symptoms Reported Respiratory: Yes: See HPI Cardiac (ROS): No: Symptoms Reported ABD/GI: No: Symptoms Reported : No: Symptoms Reported Musculoskeletal: No: Symptoms Reported Integumentary: No: Symptoms Reported Neurological: No: Symptoms reported Endocrine: No: Symptoms Reported Hematologic/Lymphatic: No: Symptoms Reported *Physical Exam - Vital Signs Last Vital Signs Temp Pulse Resp BP Pulse Ox 98.9 F 113 H 24 146/80 99 10/27/17 19:35 10/27/17 19:35 10/27/17 19:35 10/27/17 19:35 10/27/17 19:35 - Physical Exam General Appearance: Yes: Appropriately Dressed. No: Apparent Distress HEENT: positive: Normal ENT Inspection Neck: positive: Trachea midline, Supple. negative: Stridor Respiratory/Chest: positive: Wheezing (diffuse). negative: Respiratory Distress , Accessory Muscle Use Cardiovascular: positive: Regular Rhythm, Regular Rate, S1, S2. negative: Edema , Murmur Integumentary: positive: Normal Color, Dry, Warm Neurologic: positive: Alert, Normal Response ED Treatment Course - LABORATORY CBC & Chemistry Diagram: 10/27/17 20:03 10/27/17 20:03 Medical Decision Making - Medical Decision Making 10/27/17 19:59 A/P: 37-year-old woman history of asthma with shortness of breath Diffuse wheezes present Respirations even and unlabored Productive cough with yellow sputum present during examination Speaking full sentences No stridor noted Skin normal temperature and color. No moisture noted I can r/o PE as patient had a negative CTA chest on 10/25/17. Patient was discharged home after refusing steroid treatment at that time. Differential diagnosis includes bronchitis, asthma exacerbation, irritated airways. Labs, nebulizers, steroids, reassess 10/27/17 21:47 Chest x-ray as read by me: Angles clear. Cardiac silhouette is within normal limits. Questionable infiltrate noted to the right cardiac border not noted on previous study 10/25. Laboratory testing is notable for elevated WBC of 12.1. No left shift noted. Patient remains anemic but is slightly improved from labs of 10/25. Physical exam reveals patient continues to have expiratory wheezes. Patient states her respirations are "easier" at this time. I will continue with DuoNeb treatments. 10/28/17 01:52 Patient speaking in full sentences. Lungs clear to auscultation bilaterally. Patient slightly tremulous after receiving albuterol treatments. I will discharge the patient home with a prescription for azithromycin. I discussed the physical exam findings, ancillary test results and final diagnoses with the patient. I answered all of the patient's questions. The patient was satisfied with the care received and felt comfortable with the discharge plan and treatment plan. The patient will call their primary care physician within 24 hours to arrange follow-up and will return to the Emergency Department with any new, persistent or worsening symptoms. *DC/Admit/Observation/Transfer Diagnosis at time of Disposition: Bronchitis Asthma exacerbation Qualifiers: Asthma severity: moderate Asthma persistence: persistent Qualified Code(s): J45.41 - Moderate persistent asthma with (acute) exacerbation - Discharge Dispostion Disposition: HOME Condition at time of disposition: Fair Decision to Admit order: No - Prescriptions Prescriptions: Azithromycin [Zithromax 250mg Tablets -] 250 mg PO UTDICT #6 tab Prednisone [Prednisone 50 MG TABLETS] 50 mg PO DAILY #4 tablet - Referrals - Patient Instructions Printed Discharge Instructions: Asthma -- Adult Additional Instructions: Take azithromycin as prescribed. Keep well-hydrated. Use nebulizers and albuterol pump as previously prescribed. Return to emergency department for fevers, chills, shortness of breath, coughing , difficulty breathing, or any other concerns. Thank you very much for choosing us to provide your emergent health care needs. - Post Discharge Activity
[2017-10-27] MEDS ORDERED: methylPREDNISolone NA SUCC 125 MG/2 ML VIAL IVPUSH ONE (19:49)
[2017-10-27] MEDS ORDERED: SODIUM CHLORIDE 1,000 ML IV STA (19:49)
[2017-10-27] MEDS ORDERED: methylPREDNISolone NA SUCC 125 MG/2 ML VIAL ONE (19:58)
[2017-10-27] MEDS ORDERED: ALBUTEROL SO4 2.5/IPRATROPIUM 0.5 INH SOL 3 ML VIAL.NEB. NEB ONE (19:58)
[2017-10-27] MEDS: ALBUTEROL SO4 2.5/IPRATROPIUM 0.5 INH SOL 3 ML VIAL.NEB. NEB SCH ×4 (20:08→23:28)
[2017-10-27 20:14] LABS: BASO % 0.4 % (0-2.0); EOS % 5.9 % (0-4.5); HEMATOCRIT 30.9 % (32.4-45.2); HEMOGLOBIN 9.3 GM/dL (10.7-15.3); LYMPH % 27.4 % (8-40); MCHC 30.3 g/dl (32.0-36.0); MEAN CELL VOLUME 63.6 fl (80-96); MEAN PLT VOLUME 8.9 fl (7.5-11.1); MONO % 11.7 % (3.8-10.2); NEUT % 54.6 % (42.8-82.8); PLATELET COUNT 336 K/MM3 (134-434); RBC 4.85 M/mm3 (3.60-5.2); RDW 17.4 % (11.6-15.6); WHITE BLOOD COUNT 12.1 K/mm3 (4.0-10.0)
[2017-10-27 20:22] LABS: MCH 19.3 pg (25.7-33.7)
[2017-10-27 20:52] LABS: ANION GAP 10 (8-16); BLOOD UREA NITROGEN 6 mg/dL (7-18); CALCIUM 8.8 mg/dL (8.5-10.1); CHLORIDE 107 mmol/L (98-107); CO2 25 mmol/L (21-32); CREATININE 0.7 mg/dL (0.55-1.02); GLUCOSE,RANDOM 91 mg/dL (74-106); POTASSIUM 4.2 mmol/L (3.5-5.1); SODIUM 142 mmol/L (136-145)
[2017-10-27] MEDS: ALBUTEROL SO4 0.083% IH SOL 2.5 MG/3 ML VIAL.NEB. NEB SCH (23:05)
[2017-10-27] MEDS ORDERED: ALBUTEROL SO4 0.083% IH SOL 2.5 MG/3 ML VIAL.NEB. NEB ONE (23:38)
[2017-10-28] MEDS: ALBUTEROL SO4 0.083% IH SOL 2.5 MG/3 ML VIAL.NEB. NEB SCH ×3 (00:21→01:52)
[2017-10-28] MEDS ORDERED: CEFTRIAXONE 1,000 MG in DEXTROSE 5%-WATER - 50 ML IVPB ONE (00:29)
[2017-10-28] MEDS ORDERED: CEFTRIAXONE 1 GM/50 ML BAG ONE (00:42)
[2017-10-28 02:40] VITALS: BP 121/69; PULSE 93; TEMP 98.2
== END 2017-10-28 02:37 | disposition home or self-care (01) ==
LOC: JER 19:27
PROC: 3E0337Z Introduction of Electrolytic and Water Balance Substance into Peripheral Vein, Percutaneous Approach (ICD-10-PCS; principal; 2017-10-27)
PROC: 3E03329 Introduction of Other Anti-infective into Peripheral Vein, Percutaneous Approach (ICD-10-PCS; 2017-10-27)
PROC: 3E0333Z Introduction of Anti-inflammatory into Peripheral Vein, Percutaneous Approach (ICD-10-PCS; 2017-10-27)
PROC: 3E0F7GC Introduction of Other Therapeutic Substance into Respiratory Tract, Via Natural or Artificial Opening (ICD-10-PCS; 2017-10-27)
PROC: 3E0F7GC Introduction of Other Therapeutic Substance into Respiratory Tract, Via Natural or Artificial Opening (ICD-10-PCS; 2017-10-27)
DX: J45.41 Moderate persistent asthma with (acute) exacerbation (principal); J40 Bronchitis, not specified as acute or chronic; K21.9 Gastro-esophageal reflux disease without esophagitis; Z87.19 Personal history of other diseases of the digestive system
CPT/HCPCS: 36415; 71046-TC-FY; 80048; 85025; 99282-25; J7030; J7620

== ENCOUNTER 2018-02-27 22:07 | Emergency (ER) | payer SELFPAY ==
[2018-02-27 22:23] VITALS: BMI 30.8
[2018-02-27] MEDS ORDERED: SODIUM CHLORIDE 0.9% 1000 ML INFUS.BAG IV ONE (22:33)
[2018-02-27] MEDS ORDERED: methylPREDNISolone NA SUCC 125 MG/2 ML VIAL IVPB ONE (22:33)
[2018-02-27] MEDS ORDERED: ALBUTEROL SO4 2.5/IPRATROPIUM 0.5 INH SOL 3 ML VIAL.NEB. NEB ONE ×3 (22:33→22:42)
--- NOTE | 2018-02-27 22:33 | PDOC ---
History of Present Illness - General History Source: Patient Exam Limitations: No Limitations - History of Present Illness Initial Comments: 02/27/18 23:37 The patient is a 38 year old female with past medical history significant for adult onset of Asthma (4 admission this year, no hx of intubation) presents to the emergency department with shortness of breath. The patient reports shes been having intermittent symptoms for the past couple of weeks, that worsened today, with associated symptoms of nonproductive cough thats been worsening. The patient reports she was recently on a steroid course that she finished. The patient denies PCP follow up secondary to lack of insurance. LMP: Currently. Surgical history: Cholecystectomy (2009) , ERCP, Hiatal hernia repair. Social history: No past or present use of tobacco, alcohol or recreational drug. PCP: None reported. <Gail Hubbard - Last Filed: 02/27/18 23:37> <Do Yoo - Last Filed: 02/28/18 01:08> - General Chief Complaint: Asthma Stated Complaint: ASTHMA Time Seen by Provider: 02/27/18 22:26 Past History <Gail Hubbard - Last Filed: 02/27/18 23:37> - Past Medical History Asthma: Yes COPD: No GI Disorders: Yes (ulcer) - Surgical History Cholecystectomy: Yes GI Surgery: Yes (HIATAL HERNIA REPAIR, ERCP) - Reproductive History (#): 3 Para: 1 Therapeutic (s) & number: Yes (X1) Spontaneous : 0 - Immunization History Td Vaccination: No - Suicide/Smoking/Psychosocial Hx Smoking Status: No Smoking History: Never smoked Have you smoked in the past 12 months: No Number of Cigarettes Smoked Daily: 0 Information on smoking cessation initiated: No Hx Alcohol Use: No Drug/Substance Use Hx: No Substance Use Type: None <Do Yoo - Last Filed: 02/28/18 01:08> - Past Medical History Allergies/Adverse Reactions: Allergies Allergy/AdvReac Type Severity Reaction Status Date / Time morphine Allergy Verified 02/27/18 22:23 Home Medications: Ambulatory Orders Albuterol Sulfate Inhaler - [Ventolin Hfa Inhaler -] 2 inh PO Q4H PRN 10/27/17 Famotidine [Pepcid] 20 mg PO DAILY 02/02/18 Fluticasone/Vilanterol [Breo Ellipta 200-25 Mcg INH] 1 each IH BID 02/02/18 Fluticasone/Vilanterol [Breo Ellipta 200-25 Mcg INH] 1 each IH BID #1 blst.w.dev 02/02/18 Prednisone [Prednisone 50 MG TABLETS] 50 mg PO DAILY #5 tablet 02/02/18 Albuterol Sulfate Inhaler - [Ventolin HFA Inhaler -] 1 - 2 inh PO QID #1 inhaler 02/28/18 Azithromycin [Zithromax 250mg Tablets -] 250 mg PO UTDICT #6 tab 02/28/18 Methylprednisolone [Medrol Dose Willie] 4 mg PO ASDIR #21 tablet 02/28/18 Review of Systems - Review of Systems Able to Perform ROS?: Yes Comments:: 02/27/18 23:37 GENERAL/CONSTITUTIONAL: No fever or chills. No weakness. HEAD, EYES, EARS, NOSE AND THROAT: No change in vision. No ear pain or discharge. No sore throat. CARDIOVASCULAR: No chest pain. RESPIRATORY: + cough and shortness of breath. No wheezing, or hemoptysis. GASTROINTESTINAL: No nausea, vomiting, diarrhea or constipation. GENITOURINARY: No dysuria, frequency, or change in urination. MUSCULOSKELETAL: No joint or muscle swelling or pain. No neck or back pain. SKIN: No rash NEUROLOGIC: No headache, vertigo, loss of consciousness, or change in strength/ sensation. ENDOCRINE: No increased thirst. No abnormal weight change. HEMATOLOGIC/LYMPHATIC: No anemia, easy bleeding, or history of blood clots. ALLERGIC/IMMUNOLOGIC: No hives or skin allergy. <Gail Hubbard - Last Filed: 02/27/18 23:37> *Physical Exam - Vital Signs Last Vital Signs Temp Pulse Resp BP Pulse Ox 98.0 F 102 H 24 H 147/95 100 02/27/18 22:14 02/27/18 22:14 02/27/18 22:14 02/27/18 22:14 02/27/18 22:14 - Physical Exam Comments: 02/27/18 23:38 GENERAL: Awake, alert, and fully oriented, in no acute distress HEAD: No signs of trauma EYES: PERRLA, EOMI, sclera anicteric, conjunctiva clear ENT: Auricles normal inspection, hearing grossly normal, nares patent, oropharynx clear without exudates. Moist mucosa NECK: Normal ROM, supple, no lymphadenopathy, JVD, or masses LUNGS: + Bilateral wheezing, little diminished. no crackles. +conversational dyspnea. HEART: +Tachycardia. Regular rate and rhythm, normal S1 and S2, no murmurs, rubs or gallops ABDOMEN: Soft, nontender. No guarding, no rebound. No masses EXTREMITIES: No edema in the leg. Normal range of motion, no edema. No clubbing or cyanosis. No cords, erythema, or tenderness NEUROLOGICAL: Cranial nerves II through XII grossly intact. SKIN: Warm, Dry, normal turgor, no rashes or lesions noted. <Gail Hubbard - Last Filed: 02/27/18 23:37> - Vital Signs Last Vital Signs Temp Pulse Resp BP Pulse Ox 98.0 F 102 H 24 H 147/95 100 02/27/18 22:14 02/27/18 22:14 02/27/18 22:14 02/27/18 22:14 02/27/18 22:14 <Do Yoo - Last Filed: 02/28/18 01:08> Heart Score/ECG Review - ECG Intrepretation Comment:: 02/28/18 00:25 sinus at 94, nl axis, nl interval, no acute st/t wave findings <Do Yoo - Last Filed: 02/28/18 01:08> ED Treatment Course - LABORATORY CBC & Chemistry Diagram: 02/27/18 23:14 02/27/18 23:14 - ADDITIONAL ORDERS Additional order review: 02/27/18 23:14 RBC 5.15 MCV 69.3 L MCHC 30.9 L RDW 17.1 H MPV 8.7 Neutrophils % 41.6 L Lymphocytes % 36.7 Monocytes % 12.3 H Eosinophils % 8.7 H Basophils % 0.7 - Medications Given in the ED: ED Medications Discontinued Medications Generic Name Dose Route Start Last Admin Trade Name Freq PRN Reason Stop Dose Admin Albuterol/Ipratropium 1 amp 02/27/18 22:33 02/27/18 23:00 Duoneb - NEB 02/27/18 22:34 1 amp ONCE ONE Administration Albuterol/Ipratropium 1 amp 02/27/18 22:42 02/27/18 23:00 Duoneb - NEB 02/27/18 22:43 1 amp ONCE ONE Administration Magnesium Sulfate 1 gm 02/27/18 22:34 02/27/18 23:00 Magnesium Sulfate IVPB 02/27/18 22:35 1 gm ONCE ONE Administration Methylprednisolone Sodium Succinate 125 mg 02/27/18 22:33 02/27/18 23:00 Solu-Medrol - IVPB 02/27/18 22:34 125 mg ONCE ONE Administration Sodium Chloride 1,000 ml 02/27/18 22:33 02/27/18 23:00 Normal Saline - IV 02/27/18 22:34 1,000 ml ONCE ONE Administration <Gail Hubbard - Last Filed: 02/27/18 23:37> - LABORATORY CBC & Chemistry Diagram: 02/27/18 23:14 02/27/18 23:14 <Do Yoo - Last Filed: 02/28/18 01:08> Medical Decision Making - Medical Decision Making 02/27/18 22:44 38yo female with hx of asthma with sob and wheezing -recent treatment at [facility] a few days ago for an asthma exacerbation - finished steroids today -worsening cough -severe conversational dsypnea and bronchospastic cough today -will give nebs, steroids, mag, ivf -will most likely need azithro -no fc -will send labs, cxr -will monitor and reassess 02/28/18 01:03 pt states feeling much better wants to go home discussed followup with pulm and with pmd will give medicine clinic [facility], pred, albuterol discussed all reasons to return to the ED and need for follow up 02/28/18 01:05 elevated wbc from outpt steroids <Do Yoo - Last Filed: 02/28/18 01:08> *DC/Admit/Observation/Transfer - Attestations Scribe Attestion: 02/27/18 23:38 Documentation prepared by Gail Hubbard, acting as territory sales manager medical for Do Yoo DO. <Gail Hubbard - Last Filed: 02/27/18 23:37> - Discharge Dispostion Decision to Admit order: No - Attestations Physician Attestion: 02/28/18 01:08 IDr. Do DO, attest that this document has been prepared under my direction and personally reviewed by me in its entirety. I further attest, that it accurately reflects all work, treatment, procedures and medical decision -making performed by me. <Do Yoo - Last Filed: 02/28/18 01:08> Diagnosis at time of Disposition: Asthma exacerbation - Discharge Dispostion Disposition: HOME Condition at time of disposition: Stable - Prescriptions Prescriptions: Albuterol Sulfate Inhaler - [Ventolin HFA Inhaler -] 1 - 2 inh PO QID #1 inhaler Azithromycin [Zithromax 250mg Tablets -] 250 mg PO UTDICT #6 tab Methylprednisolone [Medrol Dose Willie] 4 mg PO ASDIR #21 tablet - Referrals Referrals: Ozzy Barlow MD [Staff Physician] - Cisco Lee MD [Staff Physician] - - Patient Instructions Printed Discharge Instructions: Asthma -- Adult
[2018-02-27] MEDS ORDERED: MAGNESIUM SULF 50% (8.12 MEQ/2 ML-1 GM VIAL) IVPB ONE (22:34)
[2018-02-27] MEDS ORDERED: methylPREDNISolone NA SUCC 125 MG/2 ML VIAL ONE (22:38)
[2018-02-27] MEDS ORDERED: MAGNESIUM 1GM/D5W - 1 GM/100 ML IVPB IVPB ONE (22:39)
[2018-02-27 23:31] LABS: BASO % 0.7 % (0-2.0); EOS % 8.7 % (0-4.5); HEMATOCRIT 35.7 % (32.4-45.2); LYMPH % 36.7 % (8-40); MCH 21.4 pg (25.7-33.7); MCHC 30.9 g/dl (32.0-36.0); MEAN CELL VOLUME 69.3 fl (80-96); MEAN PLT VOLUME 8.7 fl (7.5-11.1); MONO % 12.3 % (3.8-10.2); NEUT % 41.6 % (42.8-82.8); PLATELET COUNT 349 K/MM3 (134-434); RBC 5.15 M/mm3 (3.60-5.2); RDW 17.1 % (11.6-15.6); WHITE BLOOD COUNT 14.4 K/mm3 (4.0-10.0)
[2018-02-27 23:54] LABS: ANISOCYTOSIS 1+; MACROCYTOSIS 1+; PLATELET ESTIMATE ADEQUATE; VENOUS PC02 56.4 mmHg (38-52); VENOUS PH 7.3 (7.32-7.42); VENOUS PO2 28.4 mmHg (28-48)
[2018-02-28] MEDS ORDERED: AZITHROMYCIN IVPB 500 MG in DEXTROSE 5%-WATER - 250 ML IVPB ONE (00:24)
[2018-02-28 00:58] LABS: ALBUMIN 3.6 g/dl (3.4-5.0); ALK PHOS 92 U/L (45-117); ANION GAP 9 MMOL/L (8-16); BILIRUBIN,TOTAL 0.2 mg/dL (0.2-1); BLOOD UREA NITROGEN 8 mg/dL (7-18); CHLORIDE 105 mmol/L (98-107); CO2 25 mmol/L (21-32); CREATININE 0.7 mg/dL (0.55-1.3); GLUCOSE,RANDOM 106 mg/dL (74-106); MAGNESIUM 2.1 mg/dL (1.8-2.4); POTASSIUM 4.5 mmol/L (3.5-5.1); SGOT/AST 19 U/L (15-37); SGPT/ALT 26 U/L (13-61); SODIUM 139 mmol/L (136-145); TOT PROT 7.5 g/dl (6.4-8.2)
[2018-02-28] MEDS ORDERED: AZITHROMYCIN IVPB 500 MG/250 ML BAG IVPB ONE (01:03)
[2018-02-28 03:27] VITALS: BP 129/77; PULSE 93; TEMP 97.9
--- NOTE | 2018-02-28 11:52 | EKG ---
Test Reason : Blood Pressure : / mmHG Vent. Rate : 094 BPM Atrial Rate : 096 BPM P-R Int : 134 ms QRS Dur : 084 ms QT Int : 358 ms P-R-T Axes : 009 042 039 degrees QTc Int : 447 ms NORMAL SINUS RHYTHM NORMAL ECG WHEN COMPARED WITH ECG OF 21-SEP-2017 17:06, NO SIGNIFICANT CHANGE WAS FOUND Confirmed by ANDI INIGUEZ MD ([id number]) on 02/28/2018 11:51:40 AM Referred By: Confirmed By:ANDI INIGUEZ MD
== END 2018-02-28 02:29 | disposition home or self-care (01) ==
LOC: JER 22:07
PROC: 3E0F7GC Introduction of Other Therapeutic Substance into Respiratory Tract, Via Natural or Artificial Opening (ICD-10-PCS; principal; 2018-02-27)
PROC: 3E03329 Introduction of Other Anti-infective into Peripheral Vein, Percutaneous Approach (ICD-10-PCS; 2018-02-27)
PROC: 3E033GC Introduction of Other Therapeutic Substance into Peripheral Vein, Percutaneous Approach (ICD-10-PCS; 2018-02-27)
PROC: 3E0337Z Introduction of Electrolytic and Water Balance Substance into Peripheral Vein, Percutaneous Approach (ICD-10-PCS; 2018-02-27)
DX: J45.901 Unspecified asthma with (acute) exacerbation (principal)
CPT/HCPCS: 36415; 71046-TC-FY; 80053; 82803; 83735; 84703; 85025; 93005; 93010; 99282-25; J7030

== ENCOUNTER 2018-03-15 23:29 | Emergency (ER) | payer SELFPAY ==
[2018-03-15] MEDS ORDERED: ALBUTEROL SO4 2.5/IPRATROPIUM 0.5 INH SOL 3 ML VIAL.NEB. NEB ONE (23:38)
[2018-03-16 00:36] VITALS: BP 117/82; PULSE 94; TEMP 97.9; BMI 33.5
--- NOTE | 2018-03-16 00:38 | PDOC ---
History of Present Illness - General Chief Complaint: Asthma Stated Complaint: Asthma Time Seen by Provider: 03/16/18 00:37 History Source: Patient Exam Limitations: No Limitations Past History - Past Medical History Allergies/Adverse Reactions: Allergies Allergy/AdvReac Type Severity Reaction Status Date / Time morphine Allergy Verified 03/16/18 00:28 Home Medications: Ambulatory Orders Famotidine [Pepcid] 20 mg PO DAILY 02/02/18 Fluticasone/Vilanterol [Breo Ellipta 200-25 Mcg INH] 1 each IH BID 02/02/18 Albuterol Sulfate Inhaler - [Ventolin HFA Inhaler -] 1 - 2 inh PO QID #1 inhaler 02/28/18 Azithromycin [Zithromax 250mg Tablets -] 250 mg PO DAILY 4 Days #4 tablet Asthma: Yes COPD: No GI Disorders: Yes (ulcer) Psychiatric Problems: Yes (Anxiety/depression) - Surgical History Cholecystectomy: Yes GI Surgery: Yes (HIATAL HERNIA REPAIR, ERCP) - Reproductive History (#): 3 Para: 1 Therapeutic (s) & number: Yes (X1) Spontaneous : 0 - Immunization History Td Vaccination: No - Suicide/Smoking/Psychosocial Hx Smoking Status: No Smoking History: Never smoked Have you smoked in the past 12 months: No Number of Cigarettes Smoked Daily: 0 Information on smoking cessation initiated: No Hx Alcohol Use: No Drug/Substance Use Hx: No Substance Use Type: None *Physical Exam - Vital Signs Last Vital Signs Temp Pulse Resp BP Pulse Ox 97.9 F 94 H 22 H 117/82 96 03/16/18 00:29 03/16/18 00:29 03/16/18 00:29 03/16/18 00:29 03/16/18 00:29 Moderate Sedation - Procedure Monitoring Vital Signs: Procedure Monitoring Vital Signs Temperature 97.9 F 03/16/18 00:29 Pulse Rate 94 H 03/16/18 00:29 Respiratory Rate 22 H 03/16/18 00:29 Blood Pressure 117/82 03/16/18 00:29 O2 Sat by Pulse Oximetry (%) 96 03/16/18 00:29 ED Treatment Course - LABORATORY CBC & Chemistry Diagram: 03/16/18 01:10 03/16/18 01:10 Medical Decision Making - Medical Decision Making Pt was seen at bedside, also will be seen by attending Dr. Perea. Pt presenting with productive cough of yellow sputum, SOB, and wheezing x1 day. PE showed [] Considering [vs vs] Ordered work-up including [labs] and [imaging]. Provided [interventions/meds] for improvement of [pain/symptom control]. Will continue to reassess pt and monitor for symptomatic improvement. 03/16/18 03:07 CBC: WBC 15.1, H/H 10.3/32.0 CMP: WNL VBG: generally WNL Trop <.02, negative beta-hcg. Influenza negative 03/16/18 03:21 Pt saturating 99% on RA, moving good air. Pt states she is feeling better. Chest x-ray shows mild b/l patchy infiltrates. Treating pt with z-pack as she states she had cough productive of yellow sputum, WBC 15.1; sending to pts pharmacy. Pt was provided 10 mg PO decadron in the department. 03/16/18 03:36 Ambulatory saturation 98% on RA. Pt requests to be observed for additional hour as she still feels mildly SOB with walking. Will reassess. Pt provided first dose of azithromycin 500 mg PO in department. 03/16/18 04:05 Pt states feeling significantly better. Continued to saturate at high 90% in the department. Pt can be discharged to home with follow-up. Pt advised to follow-up with PCP in 1-2 days. Strict return precautions provided with pt understanding. 03/16/18 05:29 *DC/Admit/Observation/Transfer Diagnosis at time of Disposition: Pneumonia Qualifiers: Pneumonia type: due to unspecified organism Laterality: unspecified laterality Lung location: unspecified part of lung Qualified Code(s): J18.9 - Pneumonia, unspecified organism Asthma exacerbation Qualifiers: Asthma severity: unspecified severity Asthma persistence: intermittent Qualified Code(s): J45.21 - Mild intermittent asthma with (acute) exacerbation - Discharge Dispostion Disposition: HOME Condition at time of disposition: Improved Decision to Admit order: No - Prescriptions Prescriptions: Azithromycin [Zithromax 250mg Tablets -] 250 mg PO DAILY 4 Days #4 tablet - Referrals Referrals: [facility] [Provider Group] - Patient Instructions Printed Discharge Instructions: Asthma -- Adult, DI for Pneumonia -- Adult Additional Instructions: You were seen in the ER today for productive cough and asthma exacerbation. The results of your labs and imaging today showed a possible small pneumonia, and likely exacerbation of your asthma. Please follow-up with your primary care doctor within 1-2 days to discuss your visit and make sure your symptoms have improved. You may need to be placed on new medication by your primary care doctor for better control of your asthma. I have also sent an antibiotic to your pharmacy. Please take this (200 mg tablet ) once per day for 4 more days. Your first dose was given in the department. Please return to the ER if you have any worsening shortness of breath, development of fevers or chills, loss of consciousness, inability to tolerate food or fluids, or any other concerns. - Post Discharge Activity
--- NOTE | 2018-03-16 00:43 | PDOC ---
Attending Attestation - Resident Resident Name: Patricia Lange - ED Attending Attestation I have performed the following: I have examined & evaluated the patient, The case was reviewed & discussed with the resident, I agree w/resident's findings & plan
[2018-03-16] MEDS ORDERED: DEXAMETHASONE LIQUID 0.5 MG/5 ML 240 ML BULK BOTTLE PO ONE (00:44)
[2018-03-16] MEDS ORDERED: ALBUTEROL SO4 2.5/IPRATROPIUM 0.5 INH SOL 3 ML VIAL.NEB. NEB ONE ×2 (00:44→03:12)
[2018-03-16] MEDS ORDERED: SODIUM CHLORIDE FOR INHALATION 3 ML VIAL.NEB IH ONE (00:44)
[2018-03-16] MEDS ORDERED: MAGNESIUM SULF 50% (8.12 MEQ/2 ML-1 GM VIAL) IVPB ONE (00:49)
[2018-03-16] MEDS ORDERED: methylPREDNISolone NA SUCC 40 MG/1 ML VIAL IVPUSH ONE (00:49)
[2018-03-16] MEDS ORDERED: DEXAMETHASONE SOD PHOSPHATE 10 MG/1 ML VIAL ONE (00:54)
[2018-03-16] MEDS ORDERED: ALBUTEROL SO4 0.083% IH SOL 2.5 MG/3 ML VIAL.NEB. NEB ONE (00:54)
[2018-03-16] MEDS ORDERED: MAGNESIUM SULF 50% (8.12 MEQ/2 ML-1 GM VIAL) ONE (00:54)
[2018-03-16] MEDS: ALBUTEROL SO4 0.083% IH SOL 2.5 MG/3 ML VIAL.NEB. NEB SCH ×4 (01:05→01:50)
[2018-03-16 01:34] LABS: VENOUS PC02 49.3 mmHg (38-52); VENOUS PH 7.34 (7.32-7.42); VENOUS PO2 30.7 mmHg (28-48)
[2018-03-16 01:35] LABS: BASO % 0.5 % (0-2.0); EOS % 10.7 % (0-4.5); HEMOGLOBIN 10.3 GM/dL (10.7-15.3); LYMPH % 31.9 % (8-40); MCHC 32.1 g/dl (32.0-36.0); MEAN CELL VOLUME 68.4 fl (80-96); MEAN PLT VOLUME 8.9 fl (7.5-11.1); MONO % 11.2 % (3.8-10.2); NEUT % 45.7 % (42.8-82.8); PLATELET COUNT 358 K/MM3 (134-434); RBC 4.68 M/mm3 (3.60-5.2); RDW 16.2 % (11.6-15.6); WHITE BLOOD COUNT 15.1 K/mm3 (4.0-10.0)
[2018-03-16 02:05] LABS: ALBUMIN 3.5 g/dl (3.4-5.0); ALK PHOS 79 U/L (45-117); ANION GAP 7 MMOL/L (8-16); BILIRUBIN,TOTAL 0.4 mg/dL (0.2-1); BLOOD UREA NITROGEN 6 mg/dL (7-18); CALCIUM 8.7 mg/dL (8.5-10.1); CHLORIDE 106 mmol/L (98-107); CO2 27 mmol/L (21-32); CREATININE 0.8 mg/dL (0.55-1.3); GLUCOSE,RANDOM 96 mg/dL (74-106); POTASSIUM 4.5 mmol/L (3.5-5.1); SGOT/AST 39 U/L (15-37); SGPT/ALT 35 U/L (13-61); SODIUM 139 mmol/L (136-145); TOT PROT 7.1 g/dl (6.4-8.2)
[2018-03-16 02:24] LABS: MAGNESIUM 2.1 mg/dL (1.8-2.4)
[2018-03-16] MEDS ORDERED: AZITHROMYCIN 500 MG TABLET PO ONE (03:48)
[2018-03-16] MEDS ORDERED: AZITHROMYCIN 500 MG TABLET ONE (04:01)
[2018-03-16 05:22] LABS: ANISOCYTOSIS 1+; PLATELET ESTIMATE ADEQUATE
--- NOTE | 2018-03-16 17:11 | EKG ---
Test Reason : Blood Pressure : / mmHG Vent. Rate : 102 BPM Atrial Rate : 102 BPM P-R Int : 132 ms QRS Dur : 084 ms QT Int : 346 ms P-R-T Axes : 052 066 056 degrees QTc Int : 450 ms SINUS TACHYCARDIA OTHERWISE NORMAL ECG WHEN COMPARED WITH ECG OF 27-FEB-2018 23:37, NO SIGNIFICANT CHANGE WAS FOUND Confirmed by MD RIKA, MARCELINA ([id number]) on 03/16/2018 5:10:54 PM Referred By: Confirmed By:MARCELINA MELÉNDEZ MD
== END 2018-03-16 06:01 | disposition home or self-care (01) ==
LOC: JER 23:29
PROC: 3E0F7GC Introduction of Other Therapeutic Substance into Respiratory Tract, Via Natural or Artificial Opening (ICD-10-PCS; principal; 2018-03-15)
PROC: 3E0F7GC Introduction of Other Therapeutic Substance into Respiratory Tract, Via Natural or Artificial Opening (ICD-10-PCS; 2018-03-15)
PROC: 3E0F7GC Introduction of Other Therapeutic Substance into Respiratory Tract, Via Natural or Artificial Opening (ICD-10-PCS; 2018-03-15)
DX: J18.9 Pneumonia, unspecified organism (principal); J45.21 Mild intermittent asthma with (acute) exacerbation; F41.8 Other specified anxiety disorders
CPT/HCPCS: 36415; 71045-TC-FY; 80053; 82803; 83735; 84484; 84703; 85025; 87804; 93005; 93010; 99284-25

== ENCOUNTER 2018-06-01 22:10 | Emergency (ER) | payer OTHER ==
[2018-06-01 22:17] VITALS: BMI 33.5
[2018-06-01] MEDS ORDERED: ALBUTEROL SO4 2.5/IPRATROPIUM 0.5 INH SOL 3 ML VIAL.NEB. NEB ONE (22:18)
[2018-06-01] MEDS ORDERED: predniSONE 20 MG TABLET (UD) PO ONE (23:05)
--- NOTE | 2018-06-01 23:07 | PDOC ---
Attending Attestation - HPI HPI: 06/01/18 23:14 The patient is a 38 year old female, with a significant PMH of asthma ( hospitalization at [facility] approx 1 year ago), who presents to the emergency department with 2 days of shortness of breath, wheezing and non productive cough. The patient states she has used her nebulizer at home multiple times with minimal relief. The patient states she finished steroid treatment she received from [facility] approx 2 days ago and since that time has been progressively more SOB. The patient reports her LMP was a few days ago. The patient denies chest pain, palpitations, headache and dizziness. Denies fever, chills, nausea, vomit, diarrhea and constipation. Denies dysuria, frequency, urgency and hematuria. Allergies: Morphine Documentation prepared by Danny Naranjo, acting as medical technical writer for Cristina Perea MD. <Danny Naranjo - Last Filed: 06/01/18 23:14> - Physicial Exam PE: 06/02/18 01:01 GENERAL: Awake, alert, and fully oriented, in no acute distress NECK: Normal ROM, supple, no lymphadenopathy, JVD, or masses LUNGS:+ right sided wheezing. Breath sounds equal, clear to auscultation bilaterally. No crackles HEART: Regular rate and rhythm, normal S1 and S2, no murmurs, rubs or gallops ABDOMEN: Soft, nontender, normoactive bowel sounds. No guarding, no rebound. No masses EXTREMITIES: Normal range of motion, no edema. No clubbing or cyanosis. No cords, erythema, or tenderness NEUROLOGICAL: Cranial nerves II through XII grossly intact. Normal speech. SKIN: Warm, Dry, normal turgor, no rashes or lesions noted. - Medical Decision Making 06/02/18 01:01 Documentation prepared by Gail Hubbard, acting as medical technical writer for Cristina Perea MD. <Gail Hubbard - Last Filed: 06/02/18 01:01> - Resident Resident Name: Jan Goode - ED Attending Attestation I have performed the following: I have examined & evaluated the patient, The case was reviewed & discussed with the resident, I agree w/resident's findings & plan - HPI HPI: 06/02/18 03:46 Pt comes with asthma exacerbation. Pt has a right lung wheezing. no fever and no smoking hx. She has adul onset asthma that started 8 years ago. Pt states that her mom has bad asthma. - Medical Decision Making 06/02/18 03:50 Pt imporved with treatment in the ER and she has a normal CXR. She just got insurance and she was referred to a PMD. <Cristina Perea - Last Filed: 06/02/18 03:50>
[2018-06-01] MEDS ORDERED: predniSONE 20 MG TABLET (UD) ONE (23:09)
--- NOTE | 2018-06-01 23:22 | PDOC ---
History of Present Illness - General Chief Complaint: Asthma Stated Complaint: difficulty breathing/asthma Time Seen by Provider: 06/01/18 22:58 History Source: Patient Exam Limitations: No Limitations - History of Present Illness Initial Comments: 06/01/18 23:17 Patient is 38F with no significant medical history here today complaining of 1 day of cough, wheezing and shortness of breath. Endorses rhinorrhea. Patient states that two days ago, she finished a course of azithromycin and steroids that she received from [facility]. Reports history of prior hospitalization, denies intubation and icu stay. Patient states that she has used her inhaler multiple times to no avail. Denies fevers, chills, nausea, vomiting, chest pain and abdominal pain. Past History - Past Medical History Allergies/Adverse Reactions: Allergies Allergy/AdvReac Type Severity Reaction Status Date / Time morphine Allergy Verified 06/01/18 22:16 Home Medications: Ambulatory Orders Famotidine [Pepcid] 20 mg PO DAILY 02/02/18 Fluticasone/Vilanterol [Breo Ellipta 200-25 Mcg INH] 1 each IH BID 02/02/18 Albuterol Sulfate Inhaler - [Ventolin HFA Inhaler -] 1 - 2 inh PO QID #1 inhaler 02/28/18 Azithromycin [Zithromax 250mg Tablets -] 250 mg PO DAILY 4 Days #4 tablet Asthma: Yes COPD: No GI Disorders: Yes (ulcer) Psychiatric Problems: Yes (Anxiety/depression) - Surgical History Cholecystectomy: Yes GI Surgery: Yes (HIATAL HERNIA REPAIR, ERCP) - Reproductive History (#): 3 Para: 1 Therapeutic (s) & number: Yes (X1) Spontaneous : 0 - Immunization History Td Vaccination: No - Suicide/Smoking/Psychosocial Hx Smoking Status: No Smoking History: Never smoked Have you smoked in the past 12 months: No Number of Cigarettes Smoked Daily: 0 Information on smoking cessation initiated: No Hx Alcohol Use: No Drug/Substance Use Hx: No Substance Use Type: None Review of Systems - Review of Systems Comments:: 06/01/18 23:25 GENERAL/CONSTITUTIONAL: No fever or chills. No weakness. HEAD, EYES, EARS, NOSE AND THROAT: No change in vision. No sore throat. CARDIOVASCULAR: No chest pain +shortness of breath RESPIRATORY: +cough, +wheezing, no hemoptysis. GASTROINTESTINAL: No nausea, vomiting, diarrhea or constipation. GENITOURINARY: No dysuria, frequency, or change in urination. MUSCULOSKELETAL: No joint or muscle swelling or pain. No neck or back pain. SKIN: No rash NEUROLOGIC: No headache, vertigo, loss of consciousness, or change in strength/ sensation. ALLERGIC/IMMUNOLOGIC: No hives or skin allergy. *Physical Exam - Vital Signs Last Vital Signs Temp Pulse Resp BP Pulse Ox 98.0 F 103 H 16 189/90 H 100 06/01/18 22:14 06/01/18 22:14 06/01/18 22:14 06/01/18 22:14 06/01/18 22:14 - Physical Exam Comments: 06/01/18 23:26 GENERAL: Awake, alert, and fully oriented, in no acute distress HEAD: No signs of trauma, normocephalic, atraumatic EYES: PERRLA, EOMI, sclera anicteric, conjunctiva clear ENT: Auricles normal inspection, hearing grossly normal, nares patent, oropharynx clear without exudates. Moist mucosa NECK: Normal ROM, supple, no lymphadenopathy, JVD, or masses LUNGS: No distress, speaks full sentences, coughing repeatedly, scattered wheezes HEART: Regular rate and rhythm, normal S1 and S2, no murmurs, rubs or gallops, peripheral pulses normal and equal bilaterally. ABDOMEN: Soft, nontender, normoactive bowel sounds. No guarding, no rebound. No masses EXTREMITIES: Normal inspection, Normal range of motion, no edema. No clubbing or cyanosis. NEUROLOGICAL: Cranial nerves II through XII grossly intact. Normal speech, normal gait, no focal sensorimotor deficits SKIN: Warm, Dry, normal turgor, no rashes or lesions noted. Moderate Sedation - Procedure Monitoring Vital Signs: Procedure Monitoring Vital Signs Temperature 98.0 F 06/01/18 22:14 Pulse Rate 103 H 06/01/18 22:14 Respiratory Rate 16 06/01/18 22:14 Blood Pressure 189/90 H 06/01/18 22:14 O2 Sat by Pulse Oximetry (%) 100 06/01/18 22:14 ED Treatment Course - RADIOLOGY Radiology Studies Ordered: Category Date Time Status CHEST PA & LAT [RAD] Stat Radiology 06/01/18 23:05 Ordered - Medications Given in the ED: ED Medications Discontinued Medications Generic Name Dose Route Start Last Admin Trade Name Wilfredo PRN Reason Stop Dose Admin Prednisone 60 mg 06/01/18 23:05 06/01/18 23:12 Deltasone - PO 06/01/18 23:06 60 mg ONCE ONE Administration Medical Decision Making - Medical Decision Making 06/01/18 23:27 Patient is 38F here today with shortness of breath, wheezing, cough. Vitals normal and stable (BPs repeated, 132/92 in R, 128/93 in L arm). DDx includes, but is not limited to: asthma exacerbation, bronchitis, pneumonia. Will treat with duonebs, steroids. Will do CXR. 06/02/18 02:29 Given terbutaline. CXR clear. Reassessed, no tachypnea, lungs clear. Will discharge with steroids. Given return precautions. *DC/Admit/Observation/Transfer Diagnosis at time of Disposition: Asthma exacerbation - Discharge Dispostion Disposition: HOME Condition at time of disposition: Good Decision to Admit order: No - Referrals - Patient Instructions Printed Discharge Instructions: Asthma -- Adult Additional Instructions: Please follow up with a primary care physician this week. Please return if you have any new, worsening or concerning symptoms, especially fever, increasing shortness of breath and chest pain. - Post Discharge Activity Forms/Work/School Notes: Back to Work
[2018-06-02] MEDS ORDERED: TERBUTALINE SULFATE 1 MG/1 ML VIAL SQ ONE ×2 (00:31→01:21)
[2018-06-02 02:56] VITALS: BP 139/77; PULSE 82; TEMP 98.2
== END 2018-06-02 02:56 | disposition home or self-care (01) ==
LOC: JER 22:10
PROC: 3E023GC Introduction of Other Therapeutic Substance into Muscle, Percutaneous Approach (ICD-10-PCS; principal; 2018-06-01)
DX: J45.901 Unspecified asthma with (acute) exacerbation (principal); F41.8 Other specified anxiety disorders; F32.9 Major depressive disorder, single episode, unspecified
CPT/HCPCS: 71046-TC-FY; 84703; 99281-25

== ENCOUNTER 2020-09-06 11:57 | Emergency (ER) | payer OTHER ==
[2020-09-06 12:36] VITALS: TEMP 98.6; BMI 39.9
[2020-09-06] MEDS ORDERED: predniSONE 20 MG TABLET (UD) PO ONE (12:48)
[2020-09-06] MEDS ORDERED: predniSONE 20 MG TABLET (UD) ONE (12:59)
[2020-09-06] MEDS: ALBUTEROL SO4 2.5/IPRATROPIUM 0.5 INH SOL 3 ML VIAL.NEB. NEB SCH ×3 (13:00→13:40)
[2020-09-06 17:22] VITALS: BP 122/83; PULSE 95
== END 2020-09-06 17:22 | disposition home or self-care (01) ==
LOC: JER 11:57
PROC: 3E0F7GC Introduction of Other Therapeutic Substance into Respiratory Tract, Via Natural or Artificial Opening (ICD-10-PCS; principal; 2020-09-06)
DX: R06.02 Shortness of breath (principal); J45.901 Unspecified asthma with (acute) exacerbation
CPT/HCPCS: 71046-TC-FY; 94640; 99284-25

== ENCOUNTER 2021-09-26 21:52 | Inpatient (IN) | payer OTHER ==
[2021-09-26] MEDS ORDERED: methylPREDNISolone NA SUCC 125 MG/2 ML VIAL IVPUSH ONE (22:41)
[2021-09-26] MEDS ORDERED: ALBUTEROL SO4 2.5/IPRATROPIUM 0.5 INH SOL 3 ML VIAL.NEB. NEB ONE ×2 (22:41→22:45)
[2021-09-26] MEDS ORDERED: methylPREDNISolone NA SUCC 125 MG/2 ML VIAL ONE (22:46)
[2021-09-26] MEDS ORDERED: ONDANSETRON 4 MG/2 ML VIAL IVPUSH ONE (23:07)
[2021-09-26] MEDS ORDERED: ONDANSETRON 4 MG/2 ML VIAL ONE (23:08)
[2021-09-26 23:44] LABS: VENOUS BASE EXCESS -0.9 mmol/L (-2-2); VENOUS O2 SATURATION 42.1 % (70-80); VENOUS PH 7.351 (7.310-7.410)
[2021-09-26 23:49] LABS: BASO % 0.3 % (0-2.0); EOS % 0.2 % (0-4.5); HEMATOCRIT 33.4 % (32.4-45.2); LYMPH % 27.3 % (8-40); MCHC 29.9 g/dl (32.0-36.0); MEAN CELL VOLUME 65.3 fl (80-96); MONO % 12.9 % (3.8-10.2); NEUT % 59.3 % (42.8-82.8); PLATELET COUNT 344 10^3/uL (134-434); RBC 5.12 M/mm3 (3.60-5.2); RDW 17.5 % (11.6-15.6); WHITE BLOOD COUNT 12.8 K/mm3 (4.0-10.0)
[2021-09-26 23:53] LABS: MCH 19.5 pg (25.7-33.7)
[2021-09-27 00:06] LABS: CALCIUM 8.9 mg/dL (8.5-10.1)
[2021-09-27 00:07] LABS: ALBUMIN 3.5 g/dl (3.4-5.0); BLOOD UREA NITROGEN 13.3 mg/dL (7-18)
[2021-09-27 00:10] LABS: CREATININE 0.7 mg/dL (0.55-1.3)
[2021-09-27 00:12] LABS: BILIRUBIN,TOTAL 0.2 mg/dL (0.2-1); TOT PROT 7.4 g/dl (6.4-8.2)
[2021-09-27] MEDS ORDERED: MAGNESIUM SULF 50% (8.12 MEQ/2 ML-1 GM VIAL) IVPB ONE (02:28)
[2021-09-27] MEDS ORDERED: MAGNESIUM SULFATE IN WATER 2 GM/50 ML IVPB IVPB ONE (03:06)
[2021-09-27] MEDS ORDERED: PATIENT'S OWN MEDICATION (NON-FORMULARY) (Ipratropium/Albuterol Sulfate 1 PUFF Inhaler) IH PRN (04:04)
[2021-09-27] MEDS ORDERED: ALBUTEROL SO4 HFA INHALER IH ONE (07:03)
[2021-09-27 07:56] LABS: HEMATOCRIT 35.2 % (32.4-45.2); HEMOGLOBIN 10.8 GM/dL (10.7-15.3); MCH 20.1 pg (25.7-33.7); MCHC 30.7 g/dl (32.0-36.0); MEAN CELL VOLUME 65.4 fl (80-96); MEAN PLT VOLUME 8.8 fl (7.5-11.1); PLATELET COUNT 337 10^3/uL (134-434); RBC 5.39 M/mm3 (3.60-5.2); RDW 17.4 % (11.6-15.6); WHITE BLOOD COUNT 10.4 K/mm3 (4.0-10.0)
[2021-09-27 08:23] LABS: PHOSPHOROUS 3.7 mg/dL (2.5-4.9)
[2021-09-27] MEDS ORDERED: methylPREDNISolone NA SUCC 40 MG/1 ML VIAL IVPUSH SCH (09:00)
[2021-09-27 09:21] LABS: ANISOCYTOSIS 3+; MACROCYTOSIS 0
[2021-09-27] MEDS ORDERED: methylPREDNISolone NA SUCC 40 MG/1 ML VIAL ONE (09:59)
[2021-09-27] MEDS ORDERED: ENOXAPARIN NA (PORCINE) 40 MG/0.4 ML DISP.SYRIN SQ ONE (09:59)
[2021-09-27] MEDS ORDERED: ESCITALOPRAM OXALATE 10 MG TABLET ONE (09:59)
[2021-09-27] MEDS ORDERED: traZODone HCL 50 MG TABLET (FP) PO SCH (10:00)
[2021-09-27] MEDS ORDERED: predniSONE 20 MG TABLET (UD) PO SCH (10:00)
[2021-09-27] MEDS: ESCITALOPRAM OXALATE 20 MG TABLET PO SCH (10:12)
[2021-09-27] MEDS: ENOXAPARIN NA (PORCINE) 40 MG/0.4 ML DISP.SYRIN SQ SCH (10:12)
[2021-09-27] MEDS: ALBUTEROL SO4 HFA INHALER IH PRN ×2 (10:13→17:00)
[2021-09-27] MEDS: TIOTROPIUM BROMIDE 2.5 MCG (SPIRIVA) RESPIMAT INHALER IH SCH (10:40)
[2021-09-27] MEDS ORDERED: ALBUTEROL SO4 2.5/IPRATROPIUM 0.5 INH SOL 3 ML VIAL.NEB. NEB ONE (20:24)
[2021-09-27 21:22] VITALS: BMI 37.0
[2021-09-27] MEDS: traZODone HCL 50 MG TABLET (FP) PO SCH (21:25)
[2021-09-27] MEDS: methylPREDNISolone NA SUCC 40 MG/1 ML VIAL IVPUSH SCH (21:25)
[2021-09-27] MEDS: MONTELUKAST NA 10 MG TABLET PO SCH (21:25)
[2021-09-27] MEDS ORDERED: guaiFENesin 600 MG TABLET.ER (FP) PO ONE (23:07)
[2021-09-27] MEDS ORDERED: guaiFENesin/D-METHORPHAN HB 10 ML UNIT-DOSE CUPS PO PRN (23:21)
[2021-09-28] MEDS: ALBUTEROL SO4 HFA INHALER IH PRN (07:37)
[2021-09-28] MEDS ORDERED: ALBUTEROL SO4 2.5/IPRATROPIUM 0.5 INH SOL 3 ML VIAL.NEB. NEB PRN (07:42)
[2021-09-28] MEDS ORDERED: SODIUM CHLORIDE NASAL SPRAY 44 ML BOTTLE NS PRN (09:44)
[2021-09-28] MEDS: BUDESONIDE/FORMETEROL FUMARATE 160/4.5 mcg INHALER IH SCH ×2 (10:09→22:29)
[2021-09-28] MEDS: guaiFENesin 200 MG/10 ML 10 ML UNIT-DOSE CUPS PO PRN ×2 (10:09→19:14)
[2021-09-28] MEDS: TIOTROPIUM BROMIDE 2.5 MCG (SPIRIVA) RESPIMAT INHALER IH SCH (10:09)
[2021-09-28] MEDS: ENOXAPARIN NA (PORCINE) 40 MG/0.4 ML DISP.SYRIN SQ SCH (10:09)
[2021-09-28] MEDS: FAMOTIDINE 20 MG TABLET PO SCH (10:09)
[2021-09-28] MEDS: ESCITALOPRAM OXALATE 20 MG TABLET PO SCH (10:10)
[2021-09-28] MEDS: methylPREDNISolone NA SUCC 40 MG/1 ML VIAL IVPUSH SCH ×2 (10:10→22:29)
[2021-09-28 11:46] LABS: CALCIUM 10.2 mg/dL (8.5-10.1)
[2021-09-28 11:50] LABS: ALBUMIN 3.6 g/dl (3.4-5.0); BLOOD UREA NITROGEN 11.3 mg/dL (7-18); MAGNESIUM 2.2 mg/dL (1.8-2.4)
[2021-09-28 11:53] LABS: CREATININE 0.8 mg/dL (0.55-1.3)
[2021-09-28 11:55] LABS: BILIRUBIN,TOTAL 0.3 mg/dL (0.2-1); TOT PROT 7.6 g/dl (6.4-8.2)
[2021-09-28] MEDS: ALBUTEROL SO4 2.5/IPRATROPIUM 0.5 INH SOL 3 ML VIAL.NEB. NEB SCH ×3 (13:00→20:27)
[2021-09-28] MEDS ORDERED: ALBUTEROL SO4 2.5/IPRATROPIUM 0.5 INH SOL 3 ML VIAL.NEB. NEB ONE (22:06)
[2021-09-28] MEDS ORDERED: ACETAMINOPHEN 1000 MG/100 ML BAG IVPB ONE (22:07)
[2021-09-28] MEDS: MONTELUKAST NA 10 MG TABLET PO SCH (22:29)
[2021-09-28] MEDS: traZODone HCL 50 MG TABLET (FP) PO SCH (22:29)
[2021-09-29] MEDS ORDERED: ALBUTEROL SO4 2.5/IPRATROPIUM 0.5 INH SOL 3 ML VIAL.NEB. NEB ONE (05:47)
[2021-09-29] MEDS: ALBUTEROL SO4 2.5/IPRATROPIUM 0.5 INH SOL 3 ML VIAL.NEB. NEB SCH ×4 (08:25→21:20)
[2021-09-29] MEDS ORDERED: SODIUM CHLORIDE FOR INHALATION 3 ML VIAL.NEB IH PRN (09:43)
[2021-09-29 09:53] LABS: BASO % 0.1 % (0-2.0); HEMATOCRIT 34.7 % (32.4-45.2); HEMOGLOBIN 10.6 GM/dL (10.7-15.3); LYMPH % 12.6 % (8-40); MCH 20.1 pg (25.7-33.7); MCHC 30.7 g/dl (32.0-36.0); MEAN CELL VOLUME 65.4 fl (80-96); MEAN PLT VOLUME 9.7 fl (7.5-11.1); MONO % 15.4 % (3.8-10.2); NEUT % 71.9 % (42.8-82.8); PLATELET COUNT 357 10^3/uL (134-434); RDW 17.3 % (11.6-15.6); WHITE BLOOD COUNT 9.4 K/mm3 (4.0-10.0)
[2021-09-29 10:27] LABS: ALBUMIN 3.5 g/dl (3.4-5.0); BLOOD UREA NITROGEN 11.3 mg/dL (7-18); MAGNESIUM 2.3 mg/dL (1.8-2.4)
[2021-09-29 10:30] LABS: CREATININE 0.6 mg/dL (0.55-1.3)
[2021-09-29 10:32] LABS: BILIRUBIN,TOTAL 0.2 mg/dL (0.2-1); TOT PROT 7.1 g/dl (6.4-8.2)
[2021-09-29] MEDS ORDERED: IRON SUCROSE INJECTION 200 MG in SODIUM CHLORIDE 90 ML IVPB ONE (10:33)
[2021-09-29] MEDS ORDERED: DEXTROSE 5%-WATER - 50 ML IVPB ONE (11:08)
[2021-09-29] MEDS ORDERED: cefTRIAXone SODIUM 1 GM VIAL ONE (11:08)
[2021-09-29] MEDS: FAMOTIDINE 20 MG TABLET PO SCH (11:35)
[2021-09-29] MEDS: FERROUS SO4 325 MG TABLET (FP) PO SCH ×2 (11:35→17:48)
[2021-09-29] MEDS: ENOXAPARIN NA (PORCINE) 40 MG/0.4 ML DISP.SYRIN SQ SCH (11:35)
[2021-09-29] MEDS: ESCITALOPRAM OXALATE 20 MG TABLET PO SCH (11:35)
[2021-09-29] MEDS: BUDESONIDE/FORMETEROL FUMARATE 160/4.5 mcg INHALER IH SCH ×2 (11:37→21:15)
[2021-09-29] MEDS: CEFTRIAXONE 1 GM in DEXTROSE 5%-WATER - 50 ML IVPB SCH (12:08)
[2021-09-29] MEDS: methylPREDNISolone NA SUCC 40 MG/1 ML VIAL IVPUSH SCH ×3 (12:08→21:15)
[2021-09-29] MEDS: AZITHROMYCIN IVPB 500 MG/250 ML BAG IVPB SCH (12:55)
[2021-09-29] MEDS: guaiFENesin 200 MG/10 ML 10 ML UNIT-DOSE CUPS PO PRN ×2 (13:19→20:39)
[2021-09-29] MEDS: DOCUSATE SODIUM 100 MG CAPSULE (FP) PO SCH (21:15)
[2021-09-29] MEDS: MONTELUKAST NA 10 MG TABLET PO SCH (21:15)
[2021-09-29] MEDS: traZODone HCL 50 MG TABLET (FP) PO SCH (21:15)
[2021-09-30] MEDS: methylPREDNISolone NA SUCC 40 MG/1 ML VIAL IVPUSH SCH ×4 (02:45→21:32)
[2021-09-30] MEDS: ALBUTEROL SO4 0.083% IH SOL 2.5 MG/3 ML VIAL.NEB. NEB PRN (04:54)
[2021-09-30] MEDS: guaiFENesin 200 MG/10 ML 10 ML UNIT-DOSE CUPS PO PRN (05:08)
[2021-09-30] MEDS: ALBUTEROL SO4 2.5/IPRATROPIUM 0.5 INH SOL 3 ML VIAL.NEB. NEB SCH ×4 (08:12→20:05)
[2021-09-30 09:31] LABS: BASO % 0.1 % (0-2.0); HEMATOCRIT 37.7 % (32.4-45.2); HEMOGLOBIN 11.6 GM/dL (10.7-15.3); LYMPH % 10.8 % (8-40); MCHC 30.6 g/dl (32.0-36.0); MEAN CELL VOLUME 65.3 fl (80-96); MEAN PLT VOLUME 9.4 fl (7.5-11.1); MONO % 10.5 % (3.8-10.2); NEUT % 78.6 % (42.8-82.8); PLATELET COUNT 388 10^3/uL (134-434); RBC 5.78 M/mm3 (3.60-5.2); RDW 17.2 % (11.6-15.6); WHITE BLOOD COUNT 9.6 K/mm3 (4.0-10.0)
[2021-09-30 10:01] LABS: CALCIUM 9.9 mg/dL (8.5-10.1)
[2021-09-30 10:02] LABS: ALBUMIN 3.5 g/dl (3.4-5.0); BLOOD UREA NITROGEN 10.9 mg/dL (7-18); MAGNESIUM 2.5 mg/dL (1.8-2.4)
[2021-09-30 10:05] LABS: CREATININE 0.7 mg/dL (0.55-1.3)
[2021-09-30 10:07] LABS: BILIRUBIN,TOTAL 0.4 mg/dL (0.2-1); TOT PROT 7.6 g/dl (6.4-8.2)
[2021-09-30 10:23] LABS: ANISOCYTOSIS 3+; MACROCYTOSIS 0
[2021-09-30] MEDS ORDERED: cefTRIAXone SODIUM 1 GM VIAL ONE (10:32)
[2021-09-30] MEDS ORDERED: DEXTROSE 5%-WATER - 50 ML IVPB ONE (10:33)
[2021-09-30] MEDS: FAMOTIDINE 20 MG TABLET PO SCH (10:35)
[2021-09-30] MEDS: ESCITALOPRAM OXALATE 20 MG TABLET PO SCH (10:35)
[2021-09-30] MEDS: FOLIC ACID 1 MG TABLET (FP) PO SCH (10:35)
[2021-09-30] MEDS: ENOXAPARIN NA (PORCINE) 40 MG/0.4 ML DISP.SYRIN SQ SCH (10:36)
[2021-09-30] MEDS: CEFTRIAXONE 1 GM in DEXTROSE 5%-WATER - 50 ML IVPB SCH (10:36)
[2021-09-30] MEDS: FERROUS SO4 325 MG TABLET (FP) PO SCH ×3 (10:41→18:03)
[2021-09-30] MEDS: BUDESONIDE/FORMETEROL FUMARATE 160/4.5 mcg INHALER IH SCH ×2 (10:44→21:41)
[2021-09-30] MEDS: AZITHROMYCIN IVPB 500 MG/250 ML BAG IVPB SCH (11:43)
[2021-09-30] MEDS: guaiFENesin/CODEINE 10 ML UNIT-DOSE CUPS PO PRN (13:26)
[2021-09-30] MEDS: DOCUSATE SODIUM 100 MG CAPSULE (FP) PO SCH (21:32)
[2021-09-30] MEDS: MONTELUKAST NA 10 MG TABLET PO SCH (21:32)
[2021-09-30] MEDS: traZODone HCL 50 MG TABLET (FP) PO SCH (21:32)
[2021-10-01] MEDS: methylPREDNISolone NA SUCC 40 MG/1 ML VIAL IVPUSH SCH ×4 (03:38→20:57)
[2021-10-01] MEDS ORDERED: cefTRIAXone SODIUM 1 GM VIAL ONE (08:28)
[2021-10-01] MEDS ORDERED: DEXTROSE 5%-WATER - 50 ML IVPB ONE (08:28)
[2021-10-01] MEDS: ALBUTEROL SO4 2.5/IPRATROPIUM 0.5 INH SOL 3 ML VIAL.NEB. NEB SCH ×4 (08:45→20:25)
[2021-10-01] MEDS: CEFTRIAXONE 1 GM in DEXTROSE 5%-WATER - 50 ML IVPB SCH (09:17)
[2021-10-01] MEDS: ENOXAPARIN NA (PORCINE) 40 MG/0.4 ML DISP.SYRIN SQ SCH (09:18)
[2021-10-01] MEDS: FAMOTIDINE 20 MG TABLET PO SCH (09:18)
[2021-10-01] MEDS: FOLIC ACID 1 MG TABLET (FP) PO SCH (09:18)
[2021-10-01] MEDS: FERROUS SO4 325 MG TABLET (FP) PO SCH ×3 (09:18→17:43)
[2021-10-01] MEDS: ESCITALOPRAM OXALATE 20 MG TABLET PO SCH (09:18)
[2021-10-01] MEDS: BUDESONIDE/FORMETEROL FUMARATE 160/4.5 mcg INHALER IH SCH ×2 (10:56→22:22)
[2021-10-01] MEDS: guaiFENesin/CODEINE 10 ML UNIT-DOSE CUPS PO PRN ×2 (10:56→21:38)
[2021-10-01] MEDS: AZITHROMYCIN IVPB 500 MG/250 ML BAG IVPB SCH (11:39)
[2021-10-01] MEDS: BENZOCAINE/MENTH/CETYLPYRD CL 1 EACH LOZENGE MM PRN ×2 (11:39→14:26)
[2021-10-01 13:11] LABS: BASO % 0.1 % (0-2.0); HEMATOCRIT 35.3 % (32.4-45.2); HEMOGLOBIN 10.9 GM/dL (10.7-15.3); LYMPH % 19.3 % (8-40); MCH 20.2 pg (25.7-33.7); MEAN CELL VOLUME 65.2 fl (80-96); MEAN PLT VOLUME 9.4 fl (7.5-11.1); NEUT % 65.6 % (42.8-82.8); PLATELET COUNT 356 10^3/uL (134-434); RBC 5.41 M/mm3 (3.60-5.2); RDW 17.5 % (11.6-15.6); WHITE BLOOD COUNT 13.7 K/mm3 (4.0-10.0)
[2021-10-01 13:40] LABS: BLOOD UREA NITROGEN 13.4 mg/dL (7-18); CALCIUM 9.3 mg/dL (8.5-10.1)
[2021-10-01 13:41] LABS: ALBUMIN 3.1 g/dl (3.4-5.0); MAGNESIUM 2.2 mg/dL (1.8-2.4)
[2021-10-01 13:44] LABS: CREATININE 0.6 mg/dL (0.55-1.3)
[2021-10-01 13:45] LABS: BILIRUBIN,TOTAL 0.3 mg/dL (0.2-1)
[2021-10-01] MEDS: MONTELUKAST NA 10 MG TABLET PO SCH (21:37)
[2021-10-01] MEDS: DOCUSATE SODIUM 100 MG CAPSULE (FP) PO SCH (21:37)
[2021-10-01] MEDS: traZODone HCL 50 MG TABLET (FP) PO SCH (21:37)
[2021-10-02] MEDS ORDERED: MELATONIN 5 MG TABLETS PO ONE ×2 (02:06→21:57)
[2021-10-02] MEDS: methylPREDNISolone NA SUCC 40 MG/1 ML VIAL IVPUSH SCH (02:23)
[2021-10-02] MEDS: ALBUTEROL SO4 2.5/IPRATROPIUM 0.5 INH SOL 3 ML VIAL.NEB. NEB SCH ×4 (07:53→20:26)
[2021-10-02] MEDS ORDERED: methylPREDNISolone NA SUCC 40 MG/1 ML VIAL IVPUSH SCH (08:00)
[2021-10-02] MEDS ORDERED: cefTRIAXone SODIUM 1 GM VIAL ONE (09:05)
[2021-10-02] MEDS ORDERED: DEXTROSE 5%-WATER - 50 ML IVPB ONE (09:05)
[2021-10-02] MEDS: FERROUS SO4 325 MG TABLET (FP) PO SCH ×3 (09:55→18:04)
[2021-10-02] MEDS: CEFTRIAXONE 1 GM in DEXTROSE 5%-WATER - 50 ML IVPB SCH (09:55)
[2021-10-02] MEDS: FAMOTIDINE 20 MG TABLET PO SCH (09:55)
[2021-10-02] MEDS: FOLIC ACID 1 MG TABLET (FP) PO SCH (09:55)
[2021-10-02] MEDS: ESCITALOPRAM OXALATE 20 MG TABLET PO SCH (09:55)
[2021-10-02] MEDS: ENOXAPARIN NA (PORCINE) 40 MG/0.4 ML DISP.SYRIN SQ SCH (09:55)
[2021-10-02] MEDS: AZITHROMYCIN IVPB 500 MG/250 ML BAG IVPB SCH (09:56)
[2021-10-02] MEDS: guaiFENesin/CODEINE 10 ML UNIT-DOSE CUPS PO PRN ×2 (10:22→20:42)
[2021-10-02] MEDS: BUDESONIDE/FORMETEROL FUMARATE 160/4.5 mcg INHALER IH SCH ×2 (10:23→21:03)
[2021-10-02] MEDS: DOCUSATE SODIUM 100 MG CAPSULE (FP) PO SCH (21:03)
[2021-10-02] MEDS: traZODone HCL 50 MG TABLET (FP) PO SCH (21:03)
[2021-10-02] MEDS: MONTELUKAST NA 10 MG TABLET PO SCH (21:03)
[2021-10-03] MEDS: ALBUTEROL SO4 2.5/IPRATROPIUM 0.5 INH SOL 3 ML VIAL.NEB. NEB SCH (08:40)
[2021-10-03] MEDS ORDERED: cefTRIAXone SODIUM 1 GM VIAL ONE (09:19)
[2021-10-03] MEDS ORDERED: DEXTROSE 5%-WATER - 50 ML IVPB ONE (09:19)
[2021-10-03] MEDS ORDERED: predniSONE 20 MG TABLET (UD) PO SCH (10:00)
[2021-10-03] MEDS: CEFTRIAXONE 1 GM in DEXTROSE 5%-WATER - 50 ML IVPB SCH (10:19)
[2021-10-03] MEDS: AZITHROMYCIN IVPB 500 MG/250 ML BAG IVPB SCH (10:21)
[2021-10-03] MEDS: FOLIC ACID 1 MG TABLET (FP) PO SCH (10:23)
[2021-10-03] MEDS: ESCITALOPRAM OXALATE 20 MG TABLET PO SCH (10:23)
[2021-10-03] MEDS: FERROUS SO4 325 MG TABLET (FP) PO SCH ×2 (10:23→12:35)
[2021-10-03] MEDS: ENOXAPARIN NA (PORCINE) 40 MG/0.4 ML DISP.SYRIN SQ SCH (10:24)
[2021-10-03] MEDS: FAMOTIDINE 20 MG TABLET PO SCH (10:24)
[2021-10-03] MEDS: BUDESONIDE/FORMETEROL FUMARATE 160/4.5 mcg INHALER IH SCH (10:31)
[2021-10-03] MEDS: ALBUTEROL SO4 0.083% IH SOL 2.5 MG/3 ML VIAL.NEB. NEB PRN (11:42)
[2021-10-03 15:27] VITALS: BP 124/66; PULSE 97; TEMP 98.3
== END 2021-10-03 18:27 | disposition home or self-care (01) | DRG 139 ==
LOC: JER 21:52 → JERBED 09-27 02:26 → UNDOADMOB 09-27 02:26 → JERBED 09-27 19:42 → J5S 09-27 19:42 → OBSVTOIN 09-29 08:43 → INTOOBSV 09-29 08:45 → J5S 09-29 17:05
PROVIDERS: ADMIT Hospitalist; ATTEND Nurse Practitioner Acute Care
DX: J18.9 Pneumonia, unspecified organism (principal); J45.901 Unspecified asthma with (acute) exacerbation; F41.9 Anxiety disorder, unspecified; Z86.711 Personal history of pulmonary embolism; E66.9 Obesity, unspecified; Z68.37 Body mass index [BMI] 37.0-37.9, adult; D64.9 Anemia, unspecified; R55 Syncope and collapse
CPT/HCPCS: 0241U-QW; 36415; 70450-TC; 70486-TC; 71045-TC-FY; 72125-TC; 80053; 82728; 82803; 82962; 83540; 83550; 83735; 84100; 84484; 85025; 93005; 93010; 93306-TC; 94150; 94640; 99285-25; G0378; J1756

== ENCOUNTER 2022-03-21 20:33 | Observation (INO) | payer OTHER ==
[2022-03-21] MEDS ORDERED: MAGNESIUM SULFATE IN WATER 2 GM/50 ML IVPB IVPB ONE (20:46)
[2022-03-21] MEDS ORDERED: ALBUTEROL SO4 2.5/IPRATROPIUM 0.5 INH SOL 3 ML VIAL.NEB. NEB ONE ×3 (20:46→21:12)
[2022-03-21] MEDS ORDERED: DEXAMETHASONE SOD PHOSPHATE 10 MG/1 ML VIAL ONE (20:46)
[2022-03-21 20:54] VITALS: BMI 22.3
[2022-03-21] MEDS ORDERED: ALBUTEROL SO4 0.083% IH SOL 2.5 MG/3 ML VIAL.NEB. NEB ONE ×3 (21:03→22:26)
[2022-03-22 00:23] LABS: HEMATOCRIT 37.5 % (32.4-45.2); HEMOGLOBIN 11.7 GM/dL (10.7-15.3); MCHC 31.1 g/dl (32.0-36.0); MEAN CELL VOLUME 70.7 fl (80-96); MEAN PLT VOLUME 8.3 fl (7.5-11.1); PLATELET COUNT 313 10^3/uL (134-434); RBC 5.31 M/mm3 (3.60-5.2); RDW 17.2 % (11.6-15.6); WHITE BLOOD COUNT 14.1 K/mm3 (4.0-10.0)
[2022-03-22 00:43] LABS: BLOOD UREA NITROGEN 10.4 mg/dL (7-18); CALCIUM 9.6 mg/dL (8.5-10.1)
[2022-03-22 00:44] LABS: ALBUMIN 3.2 g/dl (3.4-5.0)
[2022-03-22 00:47] LABS: BILIRUBIN,TOTAL 0.2 mg/dL (0.2-1); CREATININE 0.8 mg/dL (0.55-1.3); TOT PROT 7.1 g/dl (6.4-8.2)
[2022-03-22] MEDS ORDERED: ALBUTEROL SO4 HFA INHALER IH PRN (01:21)
[2022-03-22 03:47] LABS: ANISOCYTOSIS 1+; MACROCYTOSIS 1+; OVALOCYTE 1+
[2022-03-22] MEDS ORDERED: ALBUTEROL SO4 2.5/IPRATROPIUM 0.5 INH SOL 3 ML VIAL.NEB. NEB ONE ×2 (07:31→13:23)
[2022-03-22] MEDS ORDERED: ALBUTEROL SO4 0.083% IH SOL 2.5 MG/3 ML VIAL.NEB. NEB ONE (07:31)
[2022-03-22] MEDS: ALBUTEROL SO4 2.5/IPRATROPIUM 0.5 INH SOL 3 ML VIAL.NEB. NEB SCH ×3 (07:41→20:00)
[2022-03-22 08:05] LABS: BASO % 0.1 % (0-2.0); HEMATOCRIT 39.2 % (32.4-45.2); HEMOGLOBIN 12.3 GM/dL (10.7-15.3); LYMPH % 12.4 % (8-40); MCHC 31.4 g/dl (32.0-36.0); MEAN PLT VOLUME 8.6 fl (7.5-11.1); MONO % 2.5 % (3.8-10.2); PLATELET COUNT 374 10^3/uL (134-434); WHITE BLOOD COUNT 9.1 K/mm3 (4.0-10.0)
[2022-03-22 08:41] LABS: CALCIUM 10.3 mg/dL (8.5-10.1)
[2022-03-22 08:42] LABS: ALBUMIN 3.4 g/dl (3.4-5.0); BLOOD UREA NITROGEN 9.3 mg/dL (7-18); MAGNESIUM 2.2 mg/dL (1.8-2.4)
[2022-03-22 08:46] LABS: BILIRUBIN,TOTAL 0.3 mg/dL (0.2-1); CREATININE 0.8 mg/dL (0.55-1.3); PHOSPHOROUS 4.1 mg/dL (2.5-4.9); TOT PROT 7.4 g/dl (6.4-8.2)
[2022-03-22] MEDS: ENOXAPARIN NA (PORCINE) 40 MG/0.4 ML DISP.SYRIN SQ SCH (09:40)
[2022-03-22] MEDS ORDERED: predniSONE 20 MG TABLET (UD) ONE (09:41)
[2022-03-22] MEDS ORDERED: ALBUTEROL SO4 2.5/IPRATROPIUM 0.5 INH SOL 3 ML VIAL.NEB. NEB SCH (10:00)
[2022-03-22] MEDS ORDERED: predniSONE 20 MG TABLET (UD) PO SCH (10:00)
[2022-03-22] MEDS ORDERED: ALBUTEROL SO4 HFA INHALER IH ONE (13:24)
[2022-03-22] MEDS: PANTOPRAZOLE 40 MG TABLET PO SCH (13:27)
[2022-03-22] MEDS: BUDESONIDE/FORMETEROL FUMARATE 160/4.5 mcg INHALER IH SCH ×2 (17:08→22:07)
[2022-03-22] MEDS ORDERED: guaiFENesin 200 MG/10 ML 10 ML UNIT-DOSE CUPS PO ONE (20:58)
[2022-03-22] MEDS: predniSONE 20 MG TABLET (UD) PO SCH (22:05)
[2022-03-22] MEDS: traZODone HCL 50 MG TABLET (FP) PO SCH (22:06)
[2022-03-23] MEDS: ALBUTEROL SO4 2.5/IPRATROPIUM 0.5 INH SOL 3 ML VIAL.NEB. NEB SCH ×5 (02:45→20:00)
[2022-03-23] MEDS ORDERED: ESCITALOPRAM OXALATE 10 MG TABLET ONE (09:41)
[2022-03-23] MEDS: MONTELUKAST NA 10 MG TABLET PO SCH (10:14)
[2022-03-23] MEDS: PANTOPRAZOLE 40 MG TABLET PO SCH (10:14)
[2022-03-23] MEDS: ENOXAPARIN NA (PORCINE) 40 MG/0.4 ML DISP.SYRIN SQ SCH (10:14)
[2022-03-23] MEDS: LOSARTAN 50MG/HCTZ 12.5MG 1 TAB PO SCH (10:14)
[2022-03-23] MEDS: BUDESONIDE/FORMETEROL FUMARATE 160/4.5 mcg INHALER IH SCH ×2 (10:15→22:00)
[2022-03-23] MEDS: ESCITALOPRAM OXALATE 20 MG TABLET PO SCH (10:15)
[2022-03-23 11:06] LABS: HEMATOCRIT 39.7 % (32.4-45.2); HEMOGLOBIN 11.9 GM/dL (10.7-15.3); MCH 21.2 pg (25.7-33.7); MEAN CELL VOLUME 70.7 fl (80-96); PLATELET COUNT 355 10^3/uL (134-434); RBC 5.61 M/mm3 (3.60-5.2); RDW 17.4 % (11.6-15.6); WHITE BLOOD COUNT 13.2 K/mm3 (4.0-10.0)
[2022-03-23 11:21] LABS: BLOOD UREA NITROGEN 10.9 mg/dL (7-18); CALCIUM 9.8 mg/dL (8.5-10.1); MAGNESIUM 2.1 mg/dL (1.8-2.4)
[2022-03-23 11:24] LABS: CREATININE 0.8 mg/dL (0.55-1.3); PHOSPHOROUS 3.9 mg/dL (2.5-4.9)
[2022-03-23] MEDS: predniSONE 20 MG TABLET (UD) PO SCH ×2 (11:49→21:59)
[2022-03-23] MEDS ORDERED: guaiFENesin 200 MG/10 ML 10 ML UNIT-DOSE CUPS PO PRN (17:54)
[2022-03-23] MEDS ORDERED: BENZOCAINE/MENTH/CETYLPYRD CL 1 EACH LOZENGE MM PRN (17:54)
[2022-03-23] MEDS: traZODone HCL 50 MG TABLET (FP) PO SCH (21:58)
[2022-03-24] MEDS: ALBUTEROL SO4 2.5/IPRATROPIUM 0.5 INH SOL 3 ML VIAL.NEB. NEB SCH (07:39)
[2022-03-24] MEDS ORDERED: ESCITALOPRAM OXALATE 10 MG TABLET ONE (09:34)
[2022-03-24] MEDS: ESCITALOPRAM OXALATE 20 MG TABLET PO SCH (09:44)
[2022-03-24] MEDS: PANTOPRAZOLE 40 MG TABLET PO SCH (09:44)
[2022-03-24] MEDS: MONTELUKAST NA 10 MG TABLET PO SCH (09:44)
[2022-03-24] MEDS: LOSARTAN 50MG/HCTZ 12.5MG 1 TAB PO SCH (09:44)
[2022-03-24] MEDS: predniSONE 20 MG TABLET (UD) PO SCH (09:44)
[2022-03-24] MEDS: BUDESONIDE/FORMETEROL FUMARATE 160/4.5 mcg INHALER IH SCH (09:45)
[2022-03-24] MEDS: ENOXAPARIN NA (PORCINE) 40 MG/0.4 ML DISP.SYRIN SQ SCH (09:51)
[2022-03-24 09:56] VITALS: BP 145/93; PULSE 92; RESP 18; TEMP 98
[2022-03-24 10:17] LABS: HEMATOCRIT 39.5 % (32.4-45.2); HEMOGLOBIN 12.4 GM/dL (10.7-15.3); MCH 22.1 pg (25.7-33.7); MCHC 31.4 g/dl (32.0-36.0); MEAN CELL VOLUME 70.3 fl (80-96); MEAN PLT VOLUME 8.8 fl (7.5-11.1); PLATELET COUNT 344 10^3/uL (134-434); RBC 5.61 M/mm3 (3.60-5.2); RDW 17.1 % (11.6-15.6); WHITE BLOOD COUNT 12.2 K/mm3 (4.0-10.0)
[2022-03-24 11:25] LABS: BLOOD UREA NITROGEN 12.2 mg/dL (7-18); CALCIUM 9.9 mg/dL (8.5-10.1); PHOSPHOROUS 3.2 mg/dL (2.5-4.9)
[2022-03-24 11:29] LABS: CREATININE 0.8 mg/dL (0.55-1.3)
== END 2022-03-24 11:55 | disposition home or self-care (01) ==
LOC: JER 20:33 → JERBED 23:36 → UNDOADMOB 23:36 → INTOOBSV 03-22 01:19 → OBSVTOIN 03-22 01:19 → JERBED 03-22 13:25 → J8W 03-22 16:31
PROVIDERS: ADMIT Internal Medicine; ATTEND Internal Medicine
PROC: 3E0F7GC Introduction of Other Therapeutic Substance into Respiratory Tract, Via Natural or Artificial Opening (ICD-10-PCS; principal; 2022-03-22)
PROC: 3E023GC Introduction of Other Therapeutic Substance into Muscle, Percutaneous Approach (ICD-10-PCS; 2022-03-22)
DX: J45.41 Moderate persistent asthma with (acute) exacerbation (principal); E66.8 Other obesity; Z68.35 Body mass index [BMI] 35.0-35.9, adult; Z88.5 Allergy status to narcotic agent; I10 Essential (primary) hypertension; Z29.8 Encounter for other specified prophylactic measures
CPT/HCPCS: 0241U-QW; 36415; 71045-TC-FY; 80048; 80053; 83735; 84100; 84703; 85025; 85027; 93005; 93010; 94640; 99285-25; G0378

== ENCOUNTER 2022-10-22 12:55 | Emergency (ER) | payer OTHER ==
[2022-10-22 12:59] VITALS: BP 118/87; TEMP 96.6; BMI 35.1
[2022-10-22] MEDS ORDERED: ALBUTEROL SO4 2.5/IPRATROPIUM 0.5 INH SOL 3 ML VIAL.NEB. NEB ONE ×2 (14:00→14:03)
[2022-10-22] MEDS ORDERED: DEXAMETHASONE SOD PHOSPHATE 10 MG/1 ML VIAL IM ONE (14:03)
[2022-10-22] MEDS ORDERED: DEXAMETHASONE SOD PHOSPHATE 10 MG/1 ML VIAL ONE (14:11)
[2022-10-22 15:14] VITALS: PULSE 91; RESP 14
== END 2022-10-22 16:08 | disposition home or self-care (01) ==
LOC: JER 12:55
PROC: 3E023GC Introduction of Other Therapeutic Substance into Muscle, Percutaneous Approach (ICD-10-PCS; principal; 2022-10-22)
PROC: 3E0F7GC Introduction of Other Therapeutic Substance into Respiratory Tract, Via Natural or Artificial Opening (ICD-10-PCS; 2022-10-22)
DX: R06.02 Shortness of breath (principal); R07.89 Other chest pain; R06.09 Other forms of dyspnea; J45.901 Unspecified asthma with (acute) exacerbation
CPT/HCPCS: 71045-TC-FY; 99284-25; J1100

== ENCOUNTER 2023-06-03 19:56 | Emergency (ER) | payer OTHER ==
[2023-06-03 20:04] VITALS: RESP 18; TEMP 98.3; BMI 46.3
[2023-06-03] MEDS ORDERED: MAG HYDROX/AL HYDROX/SIMETH 30 ML UNIT-DOSE CUP ONE (20:47)
[2023-06-03] MEDS ORDERED: ONDANSETRON 4 MG/2 ML VIAL ONE (20:47)
[2023-06-03] MEDS: SODIUM CHLORIDE 1,000 ML IV STA (21:15)
[2023-06-03] MEDS: ONDANSETRON 4 MG/2 ML VIAL IVPUSH ONE (21:15)
[2023-06-03] MEDS: MAG HYDROX/AL HYDROX/SIMETH 30 ML UNIT-DOSE CUP PO ONE (21:16)
[2023-06-03 21:23] LABS: BASO % 0.3 % (0-2.0); EOS % 0.3 % (0-4.5); HEMATOCRIT 41.1 % (32.4-45.2); HEMOGLOBIN 13.1 GM/dL (10.7-15.3); LYMPH % 37.5 % (8-40); MCH 24.8 pg (25.7-33.7); MCHC 31.8 g/dl (32.0-36.0); MEAN CELL VOLUME 78.1 fl (80-96); MEAN PLT VOLUME 8.8 fl (7.5-11.1); MONO % 10.1 % (3.8-10.2); NEUT % 51.8 % (42.8-82.8); PLATELET COUNT 291 10^3/uL (134-434); RBC 5.26 M/mm3 (3.60-5.2); RDW 14.7 % (11.6-15.6); WHITE BLOOD COUNT 9.2 K/mm3 (4.0-10.0)
[2023-06-03 21:42] LABS: INR 1.07 (0.83-1.09); PROTHROMBIN TIME (PATIENT) 12.4 SEC (9.7-13.0)
[2023-06-03 21:43] LABS: CALCIUM 10.1 mg/dL (8.5-10.1)
[2023-06-03 21:44] LABS: ALBUMIN 3.3 g/dl (3.4-5.0)
[2023-06-03 21:45] LABS: ACTIVATED PTT 31.8 SECONDS (25.2-36.5)
[2023-06-03 21:46] LABS: CREATININE 0.7 mg/dL (0.55-1.3)
[2023-06-03 21:47] LABS: BILIRUBIN,TOTAL 0.3 mg/dL (0.2-1); TOT PROT 6.9 g/dl (6.4-8.2)
[2023-06-03] MEDS: ACETAMINOPHEN 1000 MG/100 ML BAG IVPB ONE (22:04)
[2023-06-03] MEDS: FAMOTIDINE 20 MG/50 ML IVPB 20 MG/50 ML MG IVPB ONE (22:04)
[2023-06-03] MEDS ORDERED: ACETAMINOPHEN INJECTION 100 ML IVPB ONE (22:05)
[2023-06-03] MEDS ORDERED: FAMOTIDINE 20 MG/50 ML IVPB 20 MG/50 ML MG IVPB ONE (22:06)
[2023-06-03] MEDS ORDERED: SUMATRIPTAN SUCCINATE 6 MG/0.5 ML VIAL ONE (23:20)
[2023-06-03] MEDS: SUMATRIPTAN SUCCINATE 6 MG/0.5 ML VIAL SQ ONE (23:37)
[2023-06-03 23:45] VITALS: PULSE 68
[2023-06-04] MEDS: LIDOCAINE 5% TOPICAL PATCH TP ONE (00:06)
[2023-06-04] MEDS: LIDOCAINE PATCH REMOVAL MC SCH (00:07)
[2023-06-04] MEDS ORDERED: LIDOCAINE 4% PATCH TP ONE (00:08)
[2023-06-04 00:18] VITALS: BP 148/92
== END 2023-06-04 00:16 | disposition home or self-care (01) ==
LOC: JER 19:56
PROC: 3E033GC Introduction of Other Therapeutic Substance into Peripheral Vein, Percutaneous Approach (ICD-10-PCS; principal; 2023-06-03)
PROC: 3E033GC Introduction of Other Therapeutic Substance into Peripheral Vein, Percutaneous Approach (ICD-10-PCS; 2023-06-03)
PROC: 3E033GC Introduction of Other Therapeutic Substance into Peripheral Vein, Percutaneous Approach (ICD-10-PCS; 2023-06-03)
DX: R11.2 Nausea with vomiting, unspecified (principal); R07.9 Chest pain, unspecified; R10.9 Unspecified abdominal pain; Z20.822 Contact with and (suspected) exposure to COVID-19
CPT/HCPCS: 0241U-QW; 36415; 71045-TC-FY; 74177-TC; 80053; 83690; 84484; 84703; 85025; 85610; 85730; 86850; 86900; 86901; 93005; 93010; 99285-25; J0131; Q9967

== ENCOUNTER 2023-07-11 10:23 | Observation (INO) | payer OTHER ==
[2023-07-11] MEDS ORDERED: DEXAMETHASONE 4 MG TABLET (FP) ONE (10:52)
[2023-07-11] MEDS: ALBUTEROL SO4 2.5/IPRATROPIUM 0.5 INH SOL 3 ML VIAL.NEB. NEB SCH (10:56)
[2023-07-11] MEDS: DEXAMETHASONE 4 MG TABLET (FP) PO ONE (11:07)
[2023-07-11] MEDS ORDERED: MAG HYDROX/AL HYDROX/SIMETH 30 ML UNIT-DOSE CUP ONE (11:10)
[2023-07-11] MEDS: MAG HYDROX/AL HYDROX/SIMETH 30 ML UNIT-DOSE CUP PO ONE (11:14)
[2023-07-11] MEDS ORDERED: ALBUTEROL SO4 0.083% IH SOL 2.5 MG/3 ML VIAL.NEB. NEB PRN ×2 (11:58→12:39)
[2023-07-11] MEDS ORDERED: ALBUTEROL SO4 0.083% IH SOL 2.5 MG/3 ML VIAL.NEB. NEB ONE ×2 (13:01→17:28)
[2023-07-11] MEDS ORDERED: AZITHROMYCIN 500 MG TABLET ONE (13:01)
[2023-07-11] MEDS: ALBUTEROL SO4 0.083% IH SOL 2.5 MG/3 ML VIAL.NEB. NEB SCH (13:11)
[2023-07-11] MEDS: AZITHROMYCIN 500 MG TABLET PO SCH (13:12)
[2023-07-11 13:17] LABS: POTASSIUM 3.8 mmol/L (3.5-5.1)
[2023-07-11 13:19] LABS: ALBUMIN 3.5 g/dl (3.4-5.0); BLOOD UREA NITROGEN 6.9 mg/dL (7-18); CALCIUM 9.5 mg/dL (8.5-10.1)
[2023-07-11 13:22] LABS: CREATININE 0.7 mg/dL (0.55-1.3)
[2023-07-11 13:24] LABS: BILIRUBIN,TOTAL 0.4 mg/dL (0.2-1); TOT PROT 7.6 g/dl (6.4-8.2)
[2023-07-11 13:28] LABS: BASO % 0.1 % (0-2.0); HEMATOCRIT 38.2 % (32.4-45.2); HEMOGLOBIN 12.3 GM/dL (10.7-15.3); LYMPH % 7.7 % (8-40); MCH 25.1 pg (25.7-33.7); MCHC 32.2 g/dl (32.0-36.0); MEAN CELL VOLUME 77.8 fl (80-96); MEAN PLT VOLUME 8.8 fl (7.5-11.1); MONO % 3.4 % (3.8-10.2); NEUT % 88.8 % (42.8-82.8); PLATELET COUNT 266 10^3/uL (134-434); RBC 4.91 M/mm3 (3.60-5.2); RDW 14.1 % (11.6-15.6); WHITE BLOOD COUNT 15.5 K/mm3 (4.0-10.0)
[2023-07-11] MEDS ORDERED: diphenhydrAMINE HCL 12.5 MG/5 ML UNIT-DOSE CUPS ONE (18:05)
[2023-07-11] MEDS: diphenhydrAMINE HCL 12.5 MG/5 ML UNIT-DOSE CUPS PO ONE (18:05)
[2023-07-11] MEDS: LIDOCAINE VISCOUS 2% ORAL/TOP 15 ML UNIT-DOSE CUP MM ONE (18:05)
[2023-07-11] MEDS ORDERED: LIDOCAINE VISCOUS 2% ORAL/TOP 15 ML UNIT-DOSE CUP ONE (18:05)
[2023-07-11] MEDS: MONTELUKAST NA 10 MG TABLET PO SCH (21:18)
[2023-07-11] MEDS: traZODone HCL 50 MG TABLET (FP) PO SCH (21:18)
[2023-07-11] MEDS: guaiFENesin/D-METHORPHAN HB 10 ML UNIT-DOSE CUPS PO ONE (21:33)
[2023-07-11] MEDS: BISACODYL 5 MG TABLET.DR (FP) PO ONE (21:33)
[2023-07-11 22:54] VITALS: BMI 38.2
[2023-07-12] MEDS: methylPREDNISolone NA SUCC 40 MG/1 ML VIAL IVPUSH SCH (09:21)
[2023-07-12] MEDS: ESCITALOPRAM OXALATE 10 MG TABLET PO SCH (09:21)
[2023-07-12] MEDS ORDERED: FLUTICASONE PROP 0.05% 16 GM NASAL SPRAY NS SCH (15:30)
[2023-07-12] MEDS: FLUTICASONE PROP 0.05% 16 GM NASAL SPRAY NS PRN (18:07)
[2023-07-12] MEDS: LEVALBUTEROL HCL 0.63 MG/3 ML VIAL.NEB. IH SCH (20:12)
[2023-07-12] MEDS: BUDESONIDE/FORMETEROL FUMARATE 160/4.5 mcg INHALER IH SCH (21:16)
[2023-07-12] MEDS: guaiFENesin 200 MG/10 ML 10 ML UNIT-DOSE CUPS PO ONE (23:28)
[2023-07-12] MEDS: MELATONIN 5 MG TABLETS PO ONE (23:28)
[2023-07-13 05:48] VITALS: RESP 16
[2023-07-13] MEDS: IPRATROPIUM BR 0.02% 0.5 MG/2.5 ML VIAL.NEB. NEB PRN (06:39)
[2023-07-13 06:52] LABS: BASO % 0.1 % (0-2.0); HEMATOCRIT 40.8 % (32.4-45.2); HEMOGLOBIN 12.8 GM/dL (10.7-15.3); LYMPH % 12.3 % (8-40); MCH 24.5 pg (25.7-33.7); MCHC 31.3 g/dl (32.0-36.0); MEAN CELL VOLUME 78.3 fl (80-96); MEAN PLT VOLUME 8.8 fl (7.5-11.1); MONO % 5.1 % (3.8-10.2); NEUT % 82.5 % (42.8-82.8); PLATELET COUNT 323 10^3/uL (134-434); RBC 5.21 M/mm3 (3.60-5.2); RDW 14.3 % (11.6-15.6); WHITE BLOOD COUNT 13.8 K/mm3 (4.0-10.0)
[2023-07-13 07:00] LABS: POTASSIUM 4.9 mmol/L (3.5-5.1)
[2023-07-13 07:08] LABS: CALCIUM 9.9 mg/dL (8.5-10.1)
[2023-07-13 07:09] LABS: ALBUMIN 3.3 g/dl (3.4-5.0); BLOOD UREA NITROGEN 13.1 mg/dL (7-18); MAGNESIUM 2.5 mg/dL (1.8-2.4)
[2023-07-13 07:12] LABS: CREATININE 0.7 mg/dL (0.55-1.3); PHOSPHOROUS 3.8 mg/dL (2.5-4.9)
[2023-07-13 07:14] LABS: TOT PROT 7.7 g/dl (6.4-8.2)
[2023-07-13 07:18] LABS: BILIRUBIN,TOTAL 0.3 mg/dL (0.2-1)
[2023-07-13] MEDS: predniSONE 20 MG TABLET (UD) PO SCH (09:35)
[2023-07-13 09:36] VITALS: BP 124/84; PULSE 84; TEMP 97.3
[2023-07-13] MEDS ORDERED: methylPREDNISolone NA SUCC 40 MG/1 ML VIAL IVPUSH SCH (10:00)
== END 2023-07-13 11:56 | disposition home or self-care (01) ==
LOC: JER 10:23 → JERBED 11:58 → J4W 18:47
PROVIDERS: ADMIT Internal Medicine; ATTEND Internal Medicine
PROC: 3E0F7GC Introduction of Other Therapeutic Substance into Respiratory Tract, Via Natural or Artificial Opening (ICD-10-PCS; principal; 2023-07-11)
PROC: 3E033GC Introduction of Other Therapeutic Substance into Peripheral Vein, Percutaneous Approach (ICD-10-PCS; 2023-07-11)
DX: J45.901 Unspecified asthma with (acute) exacerbation (principal); J30.2 Other seasonal allergic rhinitis; R06.02 Shortness of breath; F41.8 Other specified anxiety disorders; K21.9 Gastro-esophageal reflux disease without esophagitis; Z86.711 Personal history of pulmonary embolism; Z90.49 Acquired absence of other specified parts of digestive tract; Z88.5 Allergy status to narcotic agent
CPT/HCPCS: 0241U-QW; 36415; 71045-TC-FY; 80053; 83735; 84100; 85025; 93005; 93010; 94640; 96374; 96376; 99285-25; G0378

== ENCOUNTER 2023-09-13 19:00 | Observation (INO) | payer OTHER ==
[2023-09-13 19:25] VITALS: BMI 38.3
[2023-09-13] MEDS ORDERED: ALBUTEROL SO4 2.5/IPRATROPIUM 0.5 INH SOL 3 ML VIAL.NEB. NEB ONE (19:36)
[2023-09-13] MEDS: ALBUTEROL SO4 2.5/IPRATROPIUM 0.5 INH SOL 3 ML VIAL.NEB. NEB SCH (19:41)
[2023-09-13] MEDS ORDERED: MAGNESIUM SULFATE IN WATER 2 GM/50 ML IVPB IVPB ONE (19:42)
[2023-09-13] MEDS: MAGNESIUM SULFATE IN WATER 2 GM/50 ML IVPB IVPB ONE (19:47)
[2023-09-13 20:55] LABS: POTASSIUM 3.6 mmol/L (3.5-5.1)
[2023-09-13 20:58] LABS: ALBUMIN 3.5 g/dl (3.4-5.0); BASO % 0.2 % (0-2.0); CALCIUM 9.4 mg/dL (8.5-10.1); EOS % 0.3 % (0-4.5); HEMATOCRIT 38.4 % (32.4-45.2); HEMOGLOBIN 12.2 GM/dL (10.7-15.3); LYMPH % 29.9 % (8-40); MCH 24.6 pg (25.7-33.7); MCHC 31.7 g/dl (32.0-36.0); MEAN CELL VOLUME 77.6 fl (80-96); MEAN PLT VOLUME 9.1 fl (7.5-11.1); MONO % 8.7 % (3.8-10.2); NEUT % 60.9 % (42.8-82.8); PLATELET COUNT 278 10^3/uL (134-434); RBC 4.94 M/mm3 (3.60-5.2); RDW 14.3 % (11.6-15.6); WHITE BLOOD COUNT 11.8 K/mm3 (4.0-10.0)
[2023-09-13 21:02] LABS: CREATININE 0.8 mg/dL (0.55-1.3)
[2023-09-13 21:04] LABS: BILIRUBIN,TOTAL 0.1 mg/dL (0.2-1); INR 0.91 (0.83-1.09); PROTHROMBIN TIME (PATIENT) 10.3 SEC (9.7-13.0); TOT PROT 7.1 g/dl (6.4-8.2)
[2023-09-13] MEDS ORDERED: ALBUTEROL SO4 0.083% IH SOL 2.5 MG/3 ML VIAL.NEB. NEB ONE (21:05)
[2023-09-13] MEDS: ALBUTEROL SO4 0.083% IH SOL 2.5 MG/3 ML VIAL.NEB. NEB ONE (21:07)
[2023-09-14] MEDS ORDERED: methylPREDNISolone NA SUCC 40 MG/1 ML VIAL ONE (00:56)
[2023-09-14] MEDS: methylPREDNISolone NA SUCC 40 MG/1 ML VIAL IVPUSH SCH (01:05)
[2023-09-14] MEDS: ALBUTEROL SO4 2.5/IPRATROPIUM 0.5 INH SOL 3 ML VIAL.NEB. NEB ONE (08:12)
[2023-09-14 08:34] VITALS: BP 138/89; RESP 15; TEMP 98.6
[2023-09-14] MEDS: LORATADINE 10 MG TABLET PO SCH (09:27)
[2023-09-14] MEDS: ENOXAPARIN NA (PORCINE) 40 MG/0.4 ML DISP.SYRIN SQ SCH (09:27)
[2023-09-14] MEDS: ESCITALOPRAM OXALATE 20 MG TABLET PO SCH (09:27)
[2023-09-14] MEDS: predniSONE 20 MG TABLET (UD) PO SCH (09:27)
[2023-09-14 09:41] LABS: BASO % 0.2 % (0-2.0); HEMATOCRIT 39.4 % (32.4-45.2); HEMOGLOBIN 12.9 GM/dL (10.7-15.3); LYMPH % 11.7 % (8-40); MCH 25.4 pg (25.7-33.7); MCHC 32.7 g/dl (32.0-36.0); MEAN CELL VOLUME 77.7 fl (80-96); MEAN PLT VOLUME 9.2 fl (7.5-11.1); MONO % 4.5 % (3.8-10.2); NEUT % 83.6 % (42.8-82.8); PLATELET COUNT 296 10^3/uL (134-434); RBC 5.07 M/mm3 (3.60-5.2); RDW 14.3 % (11.6-15.6); WHITE BLOOD COUNT 8.6 K/mm3 (4.0-10.0)
[2023-09-14 10:10] LABS: POTASSIUM 4.7 mmol/L (3.5-5.1)
[2023-09-14 10:13] LABS: CALCIUM 9.6 mg/dL (8.5-10.1)
[2023-09-14 10:14] LABS: ALBUMIN 3.6 g/dl (3.4-5.0); BLOOD UREA NITROGEN 9.6 mg/dL (7-18); MAGNESIUM 2.2 mg/dL (1.8-2.4)
[2023-09-14 10:16] LABS: PHOSPHOROUS 3.5 mg/dL (2.5-4.9)
[2023-09-14 10:17] LABS: CREATININE 0.7 mg/dL (0.55-1.3)
[2023-09-14 10:18] LABS: BILIRUBIN,TOTAL 0.3 mg/dL (0.2-1)
[2023-09-14 10:19] LABS: TOT PROT 7.6 g/dl (6.4-8.2)
[2023-09-14] MEDS: ALBUTEROL SO4 2.5/IPRATROPIUM 0.5 INH SOL 3 ML VIAL.NEB. NEB PRN (10:45)
[2023-09-14] MEDS: BUDESONIDE/FORMETEROL FUMARATE 160/4.5 mcg INHALER IH SCH (10:51)
[2023-09-14] MEDS ORDERED: INSULIN ASPART SLIDING SCALE (NOVOLOG) 1 VIAL SQ SCH (11:00)
[2023-09-14] MEDS: INSULIN ASPART SLIDING SCALE (NOVOLOG) 1 VIAL SQ SCH (12:17)
[2023-09-14 12:19] VITALS: PULSE 92
[2023-09-14] MEDS ORDERED: MONTELUKAST NA 10 MG TABLET PO SCH ×2 (22:00)
[2023-09-14] MEDS ORDERED: traZODone HCL 50 MG TABLET (FP) PO SCH (22:00)
== END 2023-09-14 13:44 | disposition home or self-care (01) ==
LOC: JER 19:00 → JERBED 22:10 → UNDOADMOB 22:10 → INTOOBSV 23:20 → OBSVTOIN 23:20 → J5S 09-14 01:18 → JERBED 09-14 01:18 → J5S 09-14 10:06
PROVIDERS: ADMIT Internal Medicine; ATTEND Internal Medicine
PROC: 3E0F7GC Introduction of Other Therapeutic Substance into Respiratory Tract, Via Natural or Artificial Opening (ICD-10-PCS; principal; 2023-09-14)
PROC: 3E023GC Introduction of Other Therapeutic Substance into Muscle, Percutaneous Approach (ICD-10-PCS; 2023-09-14)
PROC: 3E033GC Introduction of Other Therapeutic Substance into Peripheral Vein, Percutaneous Approach (ICD-10-PCS; 2023-09-14)
DX: J45.901 Unspecified asthma with (acute) exacerbation (principal); R05.9 Cough, unspecified; F41.8 Other specified anxiety disorders
CPT/HCPCS: 0241U-QW; 36415; 71045-TC-FY; 80053; 82962; 83036; 83735; 84100; 85025; 85610; 85730; 86850; 86900; 86901; 93005; 93010; 94150; 94640; 94761; 96365; 96372; 96375; 99285-25; G0378

== ENCOUNTER → 2023-11-28 | Day surgery (SDC) | payer OTHER | END | disposition home or self-care (01) | LOC: JRADIR 08:50 | PROVIDERS: ATTEND Internal Medicine Endocrinology, Diabetes & Metabolism | PROC: 0G9G3ZX Drainage of Left Thyroid Gland Lobe, Percutaneous Approach, Diagnostic (ICD-10-PCS; principal; 2023-11-28) | DX: E04.1 Nontoxic single thyroid nodule (principal) | CPT/HCPCS: 10007; 76942; 88173; 88305-TC ==

== ENCOUNTER 2023-12-10 17:07 | Emergency (ER) | payer OTHER ==
[2023-12-10 17:27] VITALS: RESP 18; TEMP 98.2; BMI 40.1
[2023-12-10] MEDS ORDERED: diazePAM 5 MG TABLET ONE (18:41)
[2023-12-10] MEDS ORDERED: KETOROLAC TROMETHAMINE 30 MG/1 ML VIAL ONE (18:41)
[2023-12-10] MEDS: diazePAM 5 MG TABLET PO ONE (18:49)
[2023-12-10] MEDS: KETOROLAC TROMETHAMINE 30 MG/1 ML VIAL IVPUSH ONE (18:49)
[2023-12-10] MEDS ORDERED: ALBUTEROL SO4 2.5/IPRATROPIUM 0.5 INH SOL 3 ML VIAL.NEB. NEB ONE (18:52)
[2023-12-10] MEDS: ALBUTEROL SO4 2.5/IPRATROPIUM 0.5 INH SOL 3 ML VIAL.NEB. NEB ONE (18:56)
[2023-12-10 19:04] LABS: BASO % 0.3 % (0-2.0); EOS % 0.3 % (0-4.5); HEMATOCRIT 40.4 % (32.4-45.2); HEMOGLOBIN 12.6 GM/dL (10.7-15.3); LYMPH % 28.4 % (8-40); MCH 23.8 pg (25.7-33.7); MCHC 31.2 g/dl (32.0-36.0); MEAN CELL VOLUME 76.4 fl (80-96); MEAN PLT VOLUME 8.1 fl (7.5-11.1); MONO % 10.9 % (3.8-10.2); NEUT % 60.1 % (42.8-82.8); PLATELET COUNT 350 10^3/uL (134-434); RBC 5.29 M/mm3 (3.60-5.2); WHITE BLOOD COUNT 12.8 K/mm3 (4.0-10.0)
[2023-12-10 19:19] LABS: POTASSIUM 4.3 mmol/L (3.5-5.1)
[2023-12-10 19:20] LABS: CALCIUM 9.7 mg/dL (8.5-10.1)
[2023-12-10 19:21] LABS: ALBUMIN 3.7 g/dl (3.4-5.0); BLOOD UREA NITROGEN 9.4 mg/dL (7-18)
[2023-12-10 19:24] LABS: CREATININE 0.8 mg/dL (0.55-1.3)
[2023-12-10 19:26] LABS: BILIRUBIN,TOTAL 0.1 mg/dL (0.2-1); TOT PROT 7.8 g/dl (6.4-8.2)
[2023-12-10] MEDS ORDERED: ACETAMINOPHEN INJECTION 100 ML ONE (20:22)
[2023-12-10] MEDS ORDERED: LIDOCAINE 4% PATCH TP ONE (20:22)
[2023-12-10] MEDS: ACETAMINOPHEN 1000 MG/100 ML BAG IVPB ONE (20:33)
[2023-12-10] MEDS: LIDOCAINE 5% TOPICAL PATCH TP ONE (20:33)
[2023-12-10 21:21] VITALS: BP 127/71; PULSE 88
[2023-12-10] MEDS: LIDOCAINE PATCH REMOVAL MC SCH (22:09)
== END 2023-12-10 23:12 | disposition home or self-care (01) ==
LOC: JER 17:07
PROC: 3E033NZ Introduction of Analgesics, Hypnotics, Sedatives into Peripheral Vein, Percutaneous Approach (ICD-10-PCS; principal; 2023-12-10)
PROC: 3E0333Z Introduction of Anti-inflammatory into Peripheral Vein, Percutaneous Approach (ICD-10-PCS; 2023-12-10)
PROC: 3E0F7GC Introduction of Other Therapeutic Substance into Respiratory Tract, Via Natural or Artificial Opening (ICD-10-PCS; 2023-12-10)
DX: M25.511 Pain in right shoulder (principal); M79.601 Pain in right arm
CPT/HCPCS: 36415; 71046-TC-FY; 80053; 84484; 85025; 93005; 93010; 99285-25; J0131

== ENCOUNTER 2024-01-02 11:35 | Observation (INO) | payer OTHER ==
[2024-01-02] MEDS ORDERED: ALBUTEROL SO4 2.5/IPRATROPIUM 0.5 INH SOL 3 ML VIAL.NEB. NEB ONE ×5 (11:51→20:09)
[2024-01-02] MEDS ORDERED: MAGNESIUM SULFATE IN WATER 2 GM/50 ML IVPB IVPB ONE (12:46)
[2024-01-02] MEDS ORDERED: methylPREDNISolone NA SUCC 125 MG/2 ML VIAL ONE (12:46)
[2024-01-02 13:10] LABS: HEMOGLOBIN 13.3 GM/dL (10.7-15.3); WHITE BLOOD COUNT 11.3 K/mm3 (4.0-10.0)
[2024-01-02 13:11] LABS: BASO % 0.2 % (0-2.0); EOS % 0.4 % (0-4.5); LYMPH % 41.8 % (8-40); MCH 24.1 pg (25.7-33.7); MCHC 31.6 g/dl (32.0-36.0); MEAN CELL VOLUME 76.3 fl (80-96); MONO % 10.1 % (3.8-10.2); NEUT % 47.5 % (42.8-82.8); PLATELET COUNT 347 10^3/uL (134-434); RDW 14.6 % (11.6-15.6)
[2024-01-02] MEDS: ALBUTEROL SO4 0.083% IH SOL 2.5 MG/3 ML VIAL.NEB. NEB ONE (13:11)
[2024-01-02] MEDS: MAGNESIUM SULF 50% (8.12 MEQ/2 ML-1 GM VIAL) IVPB ONE (13:11)
[2024-01-02] MEDS: methylPREDNISolone NA SUCC 125 MG/2 ML VIAL IVPUSH ONE (13:11)
[2024-01-02 13:37] LABS: POTASSIUM 4.3 mmol/L (3.5-5.1)
[2024-01-02 13:39] LABS: CALCIUM 10.6 mg/dL (8.5-10.1)
[2024-01-02 13:40] LABS: ALBUMIN 3.8 g/dl (3.4-5.0)
[2024-01-02 13:42] LABS: CREATININE 0.8 mg/dL (0.55-1.3)
[2024-01-02 13:44] LABS: BILIRUBIN,TOTAL 0.2 mg/dL (0.2-1); TOT PROT 8.1 g/dl (6.4-8.2)
[2024-01-02 14:34] LABS: HIV INTERPRETATION NEGATIVE (NEGATIVE)
[2024-01-02] MEDS: ALBUTEROL SO4 2.5/IPRATROPIUM 0.5 INH SOL 3 ML VIAL.NEB. NEB SCH (16:36)
[2024-01-02] MEDS ORDERED: traZODone HCL 50 MG TABLET (FP) ONE (22:16)
[2024-01-02] MEDS ORDERED: MONTELUKAST NA 10 MG TABLET ONE (22:16)
[2024-01-02] MEDS: traZODone HCL 50 MG TABLET (FP) PO SCH (22:18)
[2024-01-02] MEDS: MONTELUKAST NA 10 MG TABLET PO SCH (22:18)
[2024-01-03] MEDS ORDERED: ALBUTEROL SO4 2.5/IPRATROPIUM 0.5 INH SOL 3 ML VIAL.NEB. NEB ONE ×2 (08:10→15:22)
[2024-01-03] MEDS: methylPREDNISolone NA SUCC 40 MG/1 ML VIAL IVPUSH SCH ×2 (09:13→15:29)
[2024-01-03] MEDS: ENOXAPARIN NA (PORCINE) 40 MG/0.4 ML DISP.SYRIN SQ SCH (09:17)
[2024-01-03] MEDS: ESCITALOPRAM OXALATE 20 MG TABLET PO SCH (09:19)
[2024-01-03] MEDS: BUDESONIDE/FORMETEROL FUMARATE 160/4.5 mcg INHALER IH SCH (09:20)
[2024-01-03] MEDS ORDERED: guaiFENesin/CODEINE 10 ML UNIT-DOSE CUPS ONE (13:01)
[2024-01-03] MEDS: guaiFENesin 200 MG/10 ML 10 ML UNIT-DOSE CUPS PO PRN (13:14)
[2024-01-03] MEDS ORDERED: methylPREDNISolone NA SUCC 40 MG/1 ML VIAL ONE (15:22)
[2024-01-03] MEDS ORDERED: ALBUTEROL SO4 2.5/IPRATROPIUM 0.5 INH SOL 3 ML VIAL.NEB. NEB PRN (16:00)
[2024-01-03] MEDS ORDERED: guaiFENesin 200 MG/10 ML 10 ML UNIT-DOSE CUPS ONE (18:21)
[2024-01-03] MEDS: ALBUTEROL SULFATE 0.021% (0.63 MG/3 ML) VIAL.NEB NEB SCH (19:27)
[2024-01-03 22:35] VITALS: RESP 18; BMI 39.6
[2024-01-04 07:34] VITALS: BP 137/71; PULSE 89; TEMP 98.2
[2024-01-04] MEDS: ALBUTEROL SO4 0.083% IH SOL 2.5 MG/3 ML VIAL.NEB. NEB PRN (09:34)
[2024-01-04] MEDS: methylPREDNISolone NA SUCC 40 MG/1 ML VIAL IVPUSH SCH (09:42)
[2024-01-04 09:52] LABS: HEMATOCRIT 41.3 % (32.4-45.2); HEMOGLOBIN 12.8 GM/dL (10.7-15.3); LYMPH % 15.7 % (8-40); MCHC 30.9 g/dl (32.0-36.0); MEAN CELL VOLUME 77.5 fl (80-96); MEAN PLT VOLUME 9.1 fl (7.5-11.1); MONO % 4.9 % (3.8-10.2); NEUT % 79.4 % (42.8-82.8); PLATELET COUNT 333 10^3/uL (134-434); RBC 5.33 M/mm3 (3.60-5.2); RDW 14.2 % (11.6-15.6); WHITE BLOOD COUNT 12.8 K/mm3 (4.0-10.0)
[2024-01-04 10:12] LABS: POTASSIUM 4.9 mmol/L (3.5-5.1)
[2024-01-04 10:25] LABS: CALCIUM 10.1 mg/dL (8.5-10.1)
[2024-01-04 10:26] LABS: ALBUMIN 3.7 g/dl (3.4-5.0); BLOOD UREA NITROGEN 16.4 mg/dL (7-18); MAGNESIUM 2.3 mg/dL (1.8-2.4)
[2024-01-04 10:29] LABS: CREATININE 0.7 mg/dL (0.55-1.3)
[2024-01-04 10:30] LABS: BILIRUBIN,TOTAL 0.2 mg/dL (0.2-1); TOT PROT 7.9 g/dl (6.4-8.2)
== END 2024-01-04 10:42 | disposition home or self-care (01) ==
LOC: JER 11:35 → JERBED 15:27 → J7W 01-03 20:47
PROVIDERS: ADMIT Internal Medicine; ATTEND Nurse Practitioner Acute Care
PROC: 3E0F7GC Introduction of Other Therapeutic Substance into Respiratory Tract, Via Natural or Artificial Opening (ICD-10-PCS; principal; 2024-01-02)
PROC: 3E023GC Introduction of Other Therapeutic Substance into Muscle, Percutaneous Approach (ICD-10-PCS; 2024-01-02)
DX: J45.901 Unspecified asthma with (acute) exacerbation (principal); E66.9 Obesity, unspecified; R73.03 Prediabetes; E66.01 Morbid (severe) obesity due to excess calories; Z86.711 Personal history of pulmonary embolism
CPT/HCPCS: 0241U-QW; 36415; 71045-TC-FY; 80053; 83735; 84703; 85025; 86803; 87389; 93005; 93010; 94640; 96372; 96374; 96375; 96376; 99285-25; G0378

== ENCOUNTER 2024-09-02 15:39 | Emergency (ER) | payer OTHER ==
[2024-09-02 15:58] VITALS: TEMP 98.4; BMI 41.8
[2024-09-02] MEDS ORDERED: ALBUTEROL SO4 2.5/IPRATROPIUM 0.5 INH SOL 3 ML VIAL.NEB. NEB ONE ×2 (16:49→17:49)
[2024-09-02] MEDS ORDERED: DEXAMETHASONE SOD PHOSPHATE 10 MG/1 ML VIAL ONE (16:49)
[2024-09-02] MEDS: DEXAMETHASONE SOD PHOSPHATE 10 MG/1 ML VIAL IM ONE (16:56)
[2024-09-02] MEDS: ALBUTEROL SO4 2.5/IPRATROPIUM 0.5 INH SOL 3 ML VIAL.NEB. NEB ONE ×3 (16:56→18:13)
[2024-09-02 18:57] VITALS: BP 113/80; PULSE 83; RESP 16
== END 2024-09-02 20:52 | disposition home or self-care (01) ==
LOC: JER 15:39
PROC: 3E023GC Introduction of Other Therapeutic Substance into Muscle, Percutaneous Approach (ICD-10-PCS; principal; 2024-09-02)
PROC: 3E0F7GC Introduction of Other Therapeutic Substance into Respiratory Tract, Via Natural or Artificial Opening (ICD-10-PCS; 2024-09-02)
PROC: 3E0F7GC Introduction of Other Therapeutic Substance into Respiratory Tract, Via Natural or Artificial Opening (ICD-10-PCS; 2024-09-02)
PROC: 3E0F7GC Introduction of Other Therapeutic Substance into Respiratory Tract, Via Natural or Artificial Opening (ICD-10-PCS; 2024-09-02)
DX: J45.41 Moderate persistent asthma with (acute) exacerbation (principal); R06.02 Shortness of breath; R05.9 Cough, unspecified; R09.81 Nasal congestion
CPT/HCPCS: 0241U-QW; 71046-TC-FY; 99285-25; J1100

== ENCOUNTER 2024-12-12 18:40 | Inpatient (IN) | payer OTHER ==
[2024-12-12] MEDS ORDERED: ALBUTEROL SO4 2.5/IPRATROPIUM 0.5 INH SOL 3 ML VIAL.NEB. NEB ONE (19:11)
[2024-12-12] MEDS ORDERED: methylPREDNISolone NA SUCC 125 MG/2 ML VIAL ONE (19:12)
[2024-12-12] MEDS: methylPREDNISolone NA SUCC 125 MG/2 ML VIAL IVPUSH ONE (19:30)
[2024-12-12] MEDS: ALBUTEROL SO4 2.5/IPRATROPIUM 0.5 INH SOL 3 ML VIAL.NEB. NEB ONE (19:30)
[2024-12-12 19:33] LABS: MCHC 30.0 g/dl (32.2-35.5); MEAN CELL VOLUME 78.2 fl (79.4-94.8); MEAN PLT VOLUME 9.4 fl (9.4-12.3); RDW 14.7 % (12.2-17.1)
[2024-12-12 19:47] LABS: INR 1.11 (0.83-1.09); PROTHROMBIN TIME (PATIENT) 12.1 SEC (9.7-13.0)
[2024-12-12 19:50] LABS: ACTIVATED PTT 33.1 SECONDS (25.2-36.5)
[2024-12-12 21:30] LABS: N-TERMINAL BNP 47.5 pg/mL (0-299.9)
[2024-12-12] MEDS: BUDESONIDE 0.5 MG/2 ML INH SUSP VIAL NEB ONE (21:51)
[2024-12-12] MEDS ORDERED: ENOXAPARIN NA (PORCINE) 40 MG/0.4 ML DISP.SYRIN SQ ONE (22:02)
[2024-12-12] MEDS: methylPREDNISolone NA SUCC 40 MG/1 ML VIAL IVPUSH SCH (22:02)
[2024-12-12] MEDS: ENOXAPARIN NA (PORCINE) 40 MG/0.4 ML DISP.SYRIN SQ SCH (22:03)
[2024-12-12 22:34] LABS: GLUCOSE,RANDOM 95.0 mg/dL (74-106); TOT PROT 7.6 g/dl (6.4-8.2)
[2024-12-12 22:35] LABS: CO2 25.0 mmol/L (21-32)
[2024-12-12 22:37] LABS: ALK PHOS 91.0 U/L (40-150)
[2024-12-12 22:40] LABS: CREATININE 0.8 mg/dL (0.55-1.3); SGOT/AST 23.0 U/L (5-34); SGPT/ALT 37.0 U/L (0-55)
[2024-12-13] MEDS ORDERED: ALBUTEROL SO4 2.5/IPRATROPIUM 0.5 INH SOL 3 ML VIAL.NEB. NEB ONE (01:34)
[2024-12-13] MEDS: ALBUTEROL SO4 2.5/IPRATROPIUM 0.5 INH SOL 3 ML VIAL.NEB. NEB SCH (01:49)
[2024-12-13] MEDS ORDERED: methylPREDNISolone NA SUCC 40 MG/1 ML VIAL ONE (03:21)
[2024-12-13] MEDS: methylPREDNISolone NA SUCC 40 MG/1 ML VIAL IVPUSH SCH (03:28)
[2024-12-13 05:49] VITALS: BMI 37.6
[2024-12-13] MEDS: ALBUTEROL SO4 2.5/IPRATROPIUM 0.5 INH SOL 3 ML VIAL.NEB. NEB PRN (05:50)
[2024-12-13] MEDS: ENOXAPARIN NA (PORCINE) 40 MG/0.4 ML DISP.SYRIN SQ SCH (09:02)
[2024-12-13] MEDS: ESCITALOPRAM OXALATE 20 MG TABLET PO SCH (09:04)
[2024-12-13 09:07] LABS: ABSOLUTE IMMATURE GRANULOCYTES 0.04 x10^3/uL (0.0-0.031); BASOPHILS # 0.02 x10^3/uL (0.01-0.08); EOSINOPHIL % 0.0 % (0.7-5.8); EOSINOPHILS # 0.00 x10^3/uL (0.04-0.36); MCHC 30.4 g/dl (32.2-35.5); MEAN CELL VOLUME 77.5 fl (79.4-94.8); MEAN PLT VOLUME 10.4 fl (9.4-12.3); MONOCYTE # 0.12 x10^3/uL (0.24-0.86); MONOCYTE % 1.3 % (4.7-12.5); RDW 14.6 % (12.2-17.1)
[2024-12-13] MEDS: guaiFENesin 600 MG TABLET.ER (FP) PO SCH (09:48)
[2024-12-13] MEDS: AZITHROMYCIN IVPB 500 MG/250 ML BAG IVPB SCH (09:49)
[2024-12-13] MEDS: CEFTRIAXONE 1 GM in DEXTROSE 5%-WATER - 50 ML IVPB SCH (09:49)
[2024-12-13 09:56] LABS: GLUCOSE,RANDOM 150.0 mg/dL (74-106); TOT PROT 7.6 g/dl (6.4-8.2)
[2024-12-13 09:57] LABS: CO2 24.0 mmol/L (21-32)
[2024-12-13 09:59] LABS: ALK PHOS 91.0 U/L (40-150)
[2024-12-13 10:01] LABS: SGOT/AST 21.0 U/L (5-34); SGPT/ALT 32.0 U/L (0-55)
[2024-12-13 10:02] LABS: CREATININE 0.63 mg/dL (0.55-1.3)
[2024-12-13] MEDS: LOSARTAN 50MG/HCTZ 12.5MG 1 TAB PO SCH (10:08)
[2024-12-13] MEDS: BUDESONIDE 0.25 MG/2ML INH SUSP VIAL NEB SCH (10:45)
[2024-12-13] MEDS: ACETAMINOPHEN 500 MG TABLET (FP) PO PRN (15:36)
[2024-12-13] MEDS: MONTELUKAST NA 10 MG TABLET PO SCH (21:32)
[2024-12-13] MEDS: traZODone HCL 50 MG TABLET (FP) PO SCH (21:32)
[2024-12-14] MEDS: methylPREDNISolone NA SUCC 40 MG/1 ML VIAL IVPUSH SCH (10:23)
[2024-12-14] MEDS: POLYETHYLENE GLYCOL (HEALTHYLAX) 3350 17 GM PACKET PO SCH (13:24)
[2024-12-14] MEDS: SENNOSIDES/DOCUSATE COMBO (SENNA PLUS) TABLET (UD) PO SCH (21:32)
[2024-12-15] MEDS: predniSONE 20 MG TABLET (UD) PO SCH (13:47)
[2024-12-15 14:22] VITALS: BP 119/75; PULSE 88; RESP 21; TEMP 98.7
== END 2024-12-15 16:37 | disposition home or self-care (01) | DRG 139 ==
LOC: JER 18:40 → JERBED 21:54 → OBSVTOIN 22:17 → J7W 12-13 03:37
PROVIDERS: ADMIT Internal Medicine; ATTEND Student in an Organized Health Care Education/Training Program
DX: J18.9 Pneumonia, unspecified organism (principal); J45.41 Moderate persistent asthma with (acute) exacerbation; I10 Essential (primary) hypertension; F32.9 Major depressive disorder, single episode, unspecified; Z68.37 Body mass index [BMI] 37.0-37.9, adult; E66.01 Morbid (severe) obesity due to excess calories
CPT/HCPCS: 36415; 71046-TC-FY; 80053; 83735; 83880; 84100; 84484; 84703; 85025; 85610; 85730; 87070; 87077; 87205; 87637-QW; 93005; 93010; 94640; 99285-25; G0378